=== PATIENT | male | born 1980 | race African-American/Black ===

== ENCOUNTER 2022-01-28 08:58 | Outpatient (REF) | payer OTHER, SELFPAY ==
--- NOTE | ~2022-01-28 | MR_ITS ---
EXAMINATION: MR ABDOMEN AND PELVIS WITH AND WITHOUT CONTRAST: MR ENTEROGRAPHY CLINICAL INFORMATION: Noninfected gastroenteritis and colitis, unspecified. COMPARISON: CT abdomen/pelvis from outside facility dated from 07/12/2019. TECHNIQUE: 1500 mL Volumen PO contrast prior to scanning. Then, multiple routine MRI sequences through the abdomen and pelvis were obtained on a high-field 1.5 Elissa MRI before and after the uneventful administration of 10 mL of Gadavist gadolinium-based IV contrast. FINDINGS: STOMACH: No significant wall thickening or hyperenhancement. SMALL BOWEL: Evaluation is somewhat limited due to motion and underdistention of several loops of the small bowel. However, accounting for these limitations, no significant wall thickening, hyperenhancement or associated fat stranding are noted. Normal appendix. COLON: Evaluation is limited secondary to motion and the presence of intrinsic T1 bright stool content. However, no significant wall thickening or pericolic inflammatory changes are noted. No bowel obstruction. LUNG BASES: Lung bases are clear. LIVER: There is no signal loss in the [id number] dual-echo images to suspect the presence of hepatic steatosis. The liver is normal in size, shape and attenuation. No focal liver lesion. GALL BLADDER AND BILIARY TREE: Normal gallbladder. No biliary ductal dilatation. SPLEEN: No focal lesion. Normal size. PANCREAS: Normal. ADRENAL GLANDS: No adrenal mass. KIDNEYS AND URETERS: Normal symmetric renal enhancement. No hydronephrosis or mass. LYMPHOVASCULAR STRUCTURES: No pathologically enlarged lymphadenopathy. The abdominal aorta is of normal diameter. PELVIC VISCERA: Unremarkable. OSSEOUS STRUCTURES: No acute or suspicious osseous abnormalities. MR/MR pelvis wo/w con IMPRESSION: No evidence of active inflammatory bowel changes.
--- NOTE | ~2022-01-28 | MR_ITS ---
EXAMINATION: MR ABDOMEN AND PELVIS WITH AND WITHOUT CONTRAST: MR ENTEROGRAPHY CLINICAL INFORMATION: Noninfected gastroenteritis and colitis, unspecified. COMPARISON: CT abdomen/pelvis from outside facility dated from 07/12/2019. TECHNIQUE: 1500 mL Volumen PO contrast prior to scanning. Then, multiple routine MRI sequences through the abdomen and pelvis were obtained on a high-field 1.5 Elissa MRI before and after the uneventful administration of 10 mL of Gadavist gadolinium-based IV contrast. FINDINGS: STOMACH: No significant wall thickening or hyperenhancement. SMALL BOWEL: Evaluation is somewhat limited due to motion and underdistention of several loops of the small bowel. However, accounting for these limitations, no significant wall thickening, hyperenhancement or associated fat stranding are noted. Normal appendix. COLON: Evaluation is limited secondary to motion and the presence of intrinsic T1 bright stool content. However, no significant wall thickening or pericolic inflammatory changes are noted. No bowel obstruction. LUNG BASES: Lung bases are clear. LIVER: There is no signal loss in the uaf-[id number] dual-echo images to suspect the presence of hepatic steatosis. The liver is normal in size, shape and attenuation. No focal liver lesion. GALL BLADDER AND BILIARY TREE: Normal gallbladder. No biliary ductal dilatation. SPLEEN: No focal lesion. Normal size. PANCREAS: Normal. ADRENAL GLANDS: No adrenal mass. KIDNEYS AND URETERS: Normal symmetric renal enhancement. No hydronephrosis or mass. LYMPHOVASCULAR STRUCTURES: No pathologically enlarged lymphadenopathy. The abdominal aorta is of normal diameter. PELVIC VISCERA: Unremarkable. OSSEOUS STRUCTURES: No acute or suspicious osseous abnormalities. MR/MR abdomen wo/w con IMPRESSION: No evidence of active inflammatory bowel changes.
== END 2022-01-28 08:59 | disposition home or self-care (01) ==
LOC: HO.MRI 08:58
PROVIDERS: Visit Provider Internal Medicine Gastroenterology
DX: K52.9 Noninfective gastroenteritis and colitis, unspecified (principal)
CPT/HCPCS: 72197; 74183; A9585

== ENCOUNTER 2022-02-05 13:17 | Outpatient (REF) | payer OTHER, SELFPAY ==
[2022-02-06 12:25] LABS: Influenza A PCR NEGATIVE (Negative); Influenza B PCR NEGATIVE (Negative); Resp Syncy Virus RNA Qual PCR NEGATIVE (Negative); SARS COV2 PCR INHOUSE NEGATIVE (Negative)
== END 2022-02-05 13:18 | disposition home or self-care (01) ==
LOC: HO.LAB 13:17
PROVIDERS: Visit Provider Hospitalist
DX: Z20.822 Contact with and (suspected) exposure to COVID-19 (principal); B97.89 Other viral agents as the cause of diseases classified elsewhere; J02.8 Acute pharyngitis due to other specified organisms
CPT/HCPCS: 0241U

== ENCOUNTER 2022-04-03 08:04 | Day surgery (SDC) | payer OTHER, SELFPAY ==
[2022-03-27 15:28] VITALS: BMI 29.4
[2022-03-27 15:41] VITALS: BMI 27.8
--- NOTE | 2022-04-02 13:09 | P.CONAN_ITS ---
Documented by User: Maliha Garza NP 04/02/22 13:09 HPI - Anesthesia Eval Consult details Narrative: 41yo M for Enteroscopy Balloon Dilation,small intestinal endoscopy,enteroscopy beyond second portion of duodenum including ileum PMFSH Active Problems Active Problems: All Active Problems (Updated 03/27/22 @ 15:40 by Cielo Rivera RN) Enteritis (Acute) Sore throat (viral) (Acute) Past Medical History Medical History (Updated 03/27/22 @ 15:40 by Cielo Rivera RN) Gastritis and duodenitis Surgical History Surgical History (Updated 03/27/22 @ 15:39 by Cielo Rivera RN) History of esophagogastroduodenoscopy (EGD) Hx of colonoscopy Social History Social History (Updated 03/27/22 @ 15:41 by Cielo Rivera RN) Are you a primary health care facility administrator to a significant other at home: No Do you presently have visiting nurse or other home services: No Patient Tobacco Use Status: Never used Tobacco Use of substances other than those prescribed or required for medical reasons: No Have you been hit, kicked, punched, or otherwise hurt by someone within the past year? If so, by whom?: No Are you DNR?: No Advance Directives: No Advance Directives Information Provided: Yes Advance Directives on File: No Recently lost weight without trying: No Nutrition Risks: No Nutritional Risk Poor oral hygiene: No Meds Allergies Allergy/AdvReac Type Severity Reaction Status Date / Time No Known Allergies Allergy Verified 03/27/22 15:39 Home Medications Medication Instructions Recorded Confirmed Last Taken Type linaclotide 290 mcg capsule 290 mcg PO DAILY 04/03/22 04/03/22 Unknown History (Linzess) Exam Exam Date and Time: April 02, 2022 1309 Height,Weight and Vital Signs: Height 5 ft 11 in Weight 90.718 kg Assessment and Plan Assessment Anesthesia Assessment: Chart Reviewed Documented by User: Vy Camacho MD 04/03/22 08:48 [facility] Past Medical History Medical History (Updated 03/27/22 @ 15:40 by Cielo Rivera, RN) Gastritis and duodenitis Family History Family history of problems with anesthesia: No Surgical History Surgical History (Updated 03/27/22 @ 15:39 by Cielo Rivera, RN) History of esophagogastroduodenoscopy (EGD) Hx of colonoscopy History of Problems with Anesthesia: No Social History Social History (Updated 03/27/22 @ 15:41 by Cielo Rivera, RN) Are you a primary health care facility administrator to a significant other at home: No Do you presently have visiting nurse or other home services: No Patient Tobacco Use Status: Never used Tobacco Use of substances other than those prescribed or required for medical reasons: No Have you been hit, kicked, punched, or otherwise hurt by someone within the past year? If so, by whom?: No Are you DNR?: No Advance Directives: No Advance Directives Information Provided: Yes Advance Directives on File: No Recently lost weight without trying: No Nutrition Risks: No Nutritional Risk Poor oral hygiene: No Meds Allergies Allergy/AdvReac Type Severity Reaction Status Date / Time No Known Allergies Allergy Verified 03/27/22 15:39 Home Medications Medication Instructions Recorded Confirmed Last Taken Type linaclotide 290 mcg capsule 290 mcg PO DAILY 04/03/22 04/03/22 Unknown History (Linzess) Exam Height,Weight and Vital Signs: Height 5 ft 11 in Weight 90.718 kg Vital Signs Temp Pulse Resp BP Pulse Ox O2 Del Method 04/03/22 08:14 97.0 F 79 16 119/72 97 Room Air Airway Mallampati Class: II TM Dist: >3cm Neck ROM: Full Loose/Missing/Broken Teeth: No Heart: RRR Lungs: CTAB Assessment and Plan Assessment Anesthesia Assessment: Anesthesia Plan Discussed Final Anesthetic Review Family History of Problems with Anesthesia: No History of Problems with Anesthesia: No NPO: Yes ASA Class: II Final Preanesthetic Review: No Changes in Pt Med Stat, Meds/Allgs Chart Reviewed, Consent Obtained/Reviewed and Anes Risks/Benef Reviewed Patient Risk: Low Procedure Risk: Low Assessment/Block/Sedation in SS: Assess/Block/Sedation- Anesthetic Plan Anesthetic Plan: GA Disposition: Standard PACU
[2022-04-03] VITALS (7 sets, daily range): BP systolic 116–126; BP diastolic 56–72; PULSE 79–88; RESP 16; TEMP 36.1–36.8; O2SAT 94–100
[2022-04-03] MEDS: Lactated Ringers 1,000 ML 100 ML IVCONT (08:40)
--- NOTE | 2022-04-03 09:30 | MHC.SHP ---
Pre-Procedural Eval Section A Date of Service: 04/03/22 Section B Chief Complaint: enteritis Details of Present Illness: abdominal pain, enteritis on capsule Relevant Family History (Specify if Yes): No Relevant Social History: None Present Medications: see Short Stay Collaborative assessment Medical History: No relevant PMH History of Previous Operations: No relevant previous surgery Allergies: Allergies Allergy/AdvReac Type Severity Reaction Status Date / Time No Known Allergies Allergy Verified 03/27/22 15:39 Review of Systems Sugical H&P ROS: Negative: Constitution, Cardiovascular, Respiratory, Neurological, Psychiatric, Hem-Onc, Allergic/Immunologic, Gastrointestinal, Genitourinary, Musculoskeletal, Integumentary, Endocrine and Eyes/Ears/Nose/Throat Exam Surgical H&P Exam: Normal: HEENT, Normal: Heart, Normal: Lungs, Normal: Extremities, Normal: Abdomen, Normal: Skin and Normal: Neurological Plan Diagnosis/Plan: Unchanged I have reviewed the history and physical and performed a pertinent physical examination on my patient. No changes have occurred unless specified. Balloon enteroscopy with biopsies
--- NOTE | 2022-04-03 11:08 | W.PM.OPN ---
Operative Note Operative Note Date of Service: 04/03/22 Narrative: Procedure Description: Push enteroscopy and balloon enteroscopy Indication: enteritis and abdominal pain Anesthesia: GA Push enteroscopy and single balloon enteroscopy Consent: Indications for the procedure and potential complications of bleeding, perforation, reaction to medications and missed diagnosis were discussed with the patient and informed consent was obtained. Instrument: Pediatric colonoscope and single balloon enteroscope Monitoring: Vital signs and clinical assessment, continuous EKG monitoring, Pulse oximetry, Carbon Dioxide monitoring and blood pressure monitoring were done throughout the procedure. Procedure: The patient was placed in the left lateral decubitis position and pre-procedure medications were administered and a bite block was placed. The endoscope was inserted into the mouth and advanced under direct vision to the third part of duodenum. A careful inspection was made as the upper endoscope was withdrawn including a retroflexed examination of the proximal stomach; Findings and interventions are described below. Findings: Larynx:normal Esophagus: GE junction at 42 cm, diaphragm hiatus at 42 cm, Random esophageal biopsies taken Stomach: Patchy gastric erythema. Biopsies were obtained. Grade 2 flap valve on retroflexed examination of the cardia. Duodenum: Normal bulb and descending duodenum, bx taken (it was hard to gewt around the turn of the second part of duodenum so used the pediatric colonoscope to navigate further ahead) Jejunum: patchy erythema, bx taken, reached the mid jejunum. This was marked with Savanna Ink. Intervention: Biopsies as noted above Impression/Findings: enteritis gastritis PLAN: await bx, sent for routine studies, amyloid, IgG4, mast cell and flow cytometry
== END 2022-04-03 12:30 | disposition home or self-care (01) ==
PROVIDERS: Visit Provider Internal Medicine Gastroenterology
PROC: (CPT 44361; principal; 2022-04-03 09:30)
DX: K52.9 Noninfective gastroenteritis and colitis, unspecified (principal); K29.50 Unspecified chronic gastritis without bleeding; K44.9 Diaphragmatic hernia without obstruction or gangrene; Z79.899 Other long term (current) drug therapy
CPT/HCPCS: 44361; 44799; 36415; 88184; 88185; 88300; 88305; 88313; 88341; 88342; J0131; J1100; J2250; J2405; J3010

== ENCOUNTER 2022-04-17 16:20 | Outpatient (REF) | payer OTHER, SELFPAY ==
[2022-04-18 12:08] LABS: H Pylori Breath Test Negative (Negative)
== END 2022-04-17 16:21 | disposition home or self-care (01) ==
LOC: HO.LNP 16:20
PROVIDERS: Visit Provider Internal Medicine Gastroenterology
DX: K52.9 Noninfective gastroenteritis and colitis, unspecified (principal)
CPT/HCPCS: 83013

== ENCOUNTER 2022-06-08 09:41 | Outpatient (REF) | payer OTHER, SELFPAY ==
[2022-06-08 13:07] LABS: Influenza A PCR NEGATIVE (Negative); Influenza B PCR NEGATIVE (Negative); Resp Syncy Virus RNA Qual PCR NEGATIVE (Negative); SARS COV2 PCR INHOUSE NEGATIVE (Negative)
== END 2022-06-08 09:42 | disposition home or self-care (01) ==
LOC: HO.LAB 09:41
PROVIDERS: Student in an Organized Health Care Education/Training Program; Visit Provider Family Medicine
DX: Z20.822 Contact with and (suspected) exposure to COVID-19 (principal); B34.9 Viral infection, unspecified
CPT/HCPCS: 0241U

== ENCOUNTER 2022-06-11 11:51 | Emergency (ER) | payer OTHER, SELFPAY ==
--- NOTE | 2022-06-11 12:09 | ED_ITS ---
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 Patient also describes having nighttime diarrhea approximately 5 episodes that are nonbloody and not associated with tenesmus. He has started ciprofloxacin for this and states that since beginning that treatment yesterday he is feeling much better and his fevers have also improved. Patient denies any history of thalassemia, sickle cell or sickle cell trait. <Connie Rodriguez MD - Last Filed: 06/11/22 16:45> Related Data Home medications: Home Medications Medication Instructions Recorded Confirmed linaclotide 290 mcg capsule 290 mcg PO DAILY 04/03/22 04/03/22 (Linzess) Previous Rx's Medication Instructions Recorded ketorolac 10 mg tablet 10 mg PO Q6H PRN pain 5 days #20 06/11/22 tabs <Michelle Jimenez NP - Last Filed: 06/11/22 12:38> Allergies/adverse reactions: Allergies Allergy/AdvReac Type Severity Reaction Status Date / Time No Known Allergies Allergy Verified 04/17/22 13:27 <Michelle Jimenez NP - Last Filed: 06/11/22 12:38> Review of Systems Review of Systems: Pertinent positives and negatives as stated in HPI <Connie Rodriguez MD - Last Filed: 06/11/22 16:45> PMFSH Past Medical History Source: nursing notes reviewed <Connie Rodriguez MD - Last Filed: 06/11/22 16:45> Medical History: Medical History Gastritis and duodenitis <Michelle Jimenez NP - Last Filed: 06/11/22 12:38> Surgical History: Surgical History History of esophagogastroduodenoscopy (EGD) Hx of colonoscopy <Michelle Jimenez NP - Last Filed: 06/11/22 12:38> Social History Social History: Social History Are you a primary daycare director to a significant other at home: No Do you presently have visiting nurse or other home services: No Patient Tobacco Use Status: Never used Tobacco Advance Directives: No <Michelle Jimenez NP - Last Filed: 06/11/22 12:38> Physical Exam ED Vital Signs: Vital Signs - 24 hr 06/11/22 12:10 06/11/22 14:08 06/11/22 16:31 Temperature 98.7 F 98.5 F 98.3 F Pulse Rate 95 83 90 Respiratory Rate 18 19 18 Blood Pressure 118/51 L 106/58 L 121/74 Pulse Oximetry 98 97 99 Oxygen Delivery Method Room Air Room Air Room Air BMI result Body Mass Index 27.8 <Michelle Jimenez NP - Last Filed: 06/11/22 12:38> Vital Signs - 24 hr 06/11/22 12:10 06/11/22 14:08 06/11/22 16:31 Temperature 98.7 F 98.5 F 98.3 F Pulse Rate 95 83 90 Respiratory Rate 18 19 18 Blood Pressure 118/51 L 106/58 L 121/74 Pulse Oximetry 98 97 99 Oxygen Delivery Method Room Air Room Air Room Air BMI result Body Mass Index 27.8 VITAL SIGNS: Reviewed. GENERAL: Well developed, well nourished, in no acute distress. HEAD: Normocephalic/atraumatic EYES: PERRLA, EOMI no pale conjunctiva EARS: Ext canals without abnormality OROPHARYNX: no oral lesions noted, posterior pharynx clear NECK: Supple, no adenopathy LUNGS: Normal breath sounds. No adventitious sounds or accessory muscle use. S pO2<98> CARDIOVASCULAR: Regular rate and rhythm without noted murmurs ABDOMEN: Soft, non-tender, non-distended with bowel sounds. MUSCULOSKELETAL: No tenderness, deformities, or effusions noted on gross inspection. EXTREMITIES: No cyanosis, clubbing or edema. SKIN: Inspection of the skin reveals no rashes NEUROLOGIC: Alert and oriented x 4. Strength and sensation to light touch were grossly intact x 4. <Connie Rodriguez MD - Last Filed: 06/11/22 16:45> Course Course Course Narrative: This is rapid medical exam. Deferred additional HPI, ROS, PE to primary provider. Traveled from [place] ([facility]) 06/01. 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 Did not take malaria prophylaxis. Since Wednesday headache, fever (up to 104), body aches, cough, congestion, abdominal pain, diarrhea. Wednesday tested negative for flu/covid/rsv. Started malaria medication Wednesday (took 3 doses which is complete course per patient), started ciprofloxacin yesterday. still having symptoms. Tomorrow has appt with PCP. D/w with attending Dr Rodriguez. Plan for labs, stool studies. Will discuss additional testing with patient when seen. <Michelle Jimenez NP - Last Filed: 06/11/22 12:38> Medications Administered Generic Name Dose Route Start Last Admin Trade Name Freq PRN Reason Stop Dose Admin Sodium Chloride 2,000 mls @ 999 mls/hr 06/11/22 14:45 06/11/22 15:20 Ns IV 06/11/22 16:45 999 mls/hr .Q2H1M MONTY Administration Discontinued Medications Generic Name Dose Route Start Last Admin Trade Name Freq PRN Reason Stop Dose Admin Ketorolac Tromethamine 15 mg 06/11/22 16:28 06/11/22 16:40 Ketorolac Tromethamine 30 Mg/Ml Vial IVPUSH 06/11/22 16:29 15 mg ONCE ONE Administration <Michelle Jimenez NP - Last Filed: 06/11/22 12:38> Medications Administered Generic Name Dose Route Start Last Admin Trade Name Freq PRN Reason Stop Dose Admin Sodium Chloride 2,000 mls @ 999 mls/hr 06/11/22 14:45 06/11/22 15:20 Ns IV 06/11/22 16:45 999 mls/hr .Q2H1M MONTY Administration Discontinued Medications Generic Name Dose Route Start Last Admin Trade Name Carlitos PRN Reason Stop Dose Admin Ketorolac Tromethamine 15 mg 06/11/22 16:28 06/11/22 16:40 Ketorolac Tromethamine 30 Mg/Ml Vial IVPUSH 06/11/22 16:29 15 mg ONCE ONE Administration <Connie Rodriguez MD - Last Filed: 06/11/22 16:45> Medical Decision Making Medical Decision Making MDM Narrative: 41-year-old male with suspicion for some form of tropical disease but typhoid and/or malaria very high on the list. 1448: I received a call from the lab which identifies ring structures within 1- 2% of the RBCs and will send to [facility] for confirmation. 1517: [facility] was notified about patient's diagnosis. I reviewed all investigations and my interpretation is that patient has malaria and possible typhoid and is unable to provide stool sample at this time but was instructed to collect 1 overnight so that his primary care provider would have it in the morning. However, unlikely to be positive given the fact that patient has already started himself on ciprofloxacin. She is otherwise discharged home after receiving 2 L of IV fluids as well as analgesics and will follow-up with his primary care provider tomorrow. <Connie Rodriguez MD - Last Filed: 06/11/22 16:45> Differential Diagnosis Differential Diagnoses: The differential diagnosis associated with the presentation includes <Connie Rodriguez MD - Last Filed: 06/11/22 16:45> Please see the discussion above <Connie Rodriguez MD - Last Filed: 06/11/22 16:45> Consult Healthcare Provider Management of the patient was discussed with: Sand Caster Apprentice <Connie Rodriguez MD - Last Filed: 06/11/22 16:45> Dr Monet agrees with current treatment and was informed of diagnosis. She knows that dengue and typhoid are pending. <Connie Rodriguez MD - Last Filed: 06/11/22 16:45> Lab Data Result Diagrams: 06/11/22 12:53 01/26/23 12:53 <Michelle Jimenez, WEB SITE ADMIN - Last Filed: 06/11/22 12:38> Labs: Lab Results 06/11/22 06/11/22 06/11/22 Range/Units 12:32 12:53 12:53 WBC 5.2 (4.8-10.8) X10*3/uL RBC 5.10 (4.60-5.80) X10*6/uL Hgb 13.3 L (14.0-18.0) g/dl Hct 39.5 L (42.0-52.0) % MCV 77.5 L (80.0-98.0) fL MCH 26.1 L (27.0-33.0) pg MCHC 33.7 (31.0-36.0) g/dl RDW 12.5 (11.0-16.0) % Plt Count 68 L (160-400) X10*3/uL MPV 10.6 (9.4-12.4) fL Immature Gran % (Auto) Cancelled Neut % (Auto) Cancelled Lymph % (Auto) Cancelled Richardson % (Auto) Cancelled Eos % (Auto) Cancelled Baso % (Auto) Cancelled Lymph # (Auto) Cancelled Richardson # (Auto) Cancelled Eos # (Auto) Cancelled Baso # (Auto) Cancelled Abs Immat Gran (auto) Cancelled Absolute Neuts (auto) Cancelled Absolute Nucleated RBC 0.000 (0.0-0.012) X10*3/uL Nucleated RBC % (auto) 0.0 (0.0-0.2) /100WBC Neutrophils % (Manual) 32 L (45-73) % Band Neutrophils % 2 L (3-5) % Lymphocytes % (Manual) 50 H (20-40) % Atypical Lymphs % (Man) 6 (0-6) % Monocytes % (Manual) 10 (2-11) % Abs Neuts (Manual) 1.8 L (2.0-8.3) X10*3/uL Lymphocytes # (Manual) 2.6 (1.2-4.9) X10*3/uL Atyp Lymphs # (Manual) 0.3 x10*3/uL Monocytes # (Manual) 0.5 (0.1-1.2) X10*3/uL Platelet Estimate DECREASED (NORMAL) Plt Morphology Comment NORMAL RBC Morphology NOTED Polychromasia 1+ (0-2) /OIF Microcytosis 1+ (5-14) /OIF Crystal Cells 1+ (0-2) /OIF Smear Path Review Absolute Retic (0.026-0.095) X10*6/uL Percent Retic (0.5-1.8) % Immature Retic Fraction (2.3-13.4) % Retic Hgb Equivalent (30.0-35.0) pg PT (10.0-13.1) SEC INR (0.9-1.1) Sodium 135 (135-145) mmol/L Potassium 3.5 (3.3-5.1) mmol/L Chloride 103 (96-108) mmol/L Carbon Dioxide 23 (22-29) mmol/L Anion Gap 13 (12-20) BUN 9 (9-16) mg/dL Creatinine 1.18 (0.5-1.4) mg/dL Estim Creat Clear Calc 95.8 Estimated GFR > 60 Random Glucose 125 H (60-115) mg/dL Calcium 8.9 (8.4-10.2) mg/dL Total Bilirubin 1.1 H (0.0-1.0) mg/dL Direct Bilirubin 0.3 (0.0-0.5) mg/dL AST 36 (5-37) U/L ALT 38 (0-40) U/L Alkaline Phosphatase 79 (39-117) U/L Total Protein 6.8 (6.5-8.0) g/dL Albumin 3.6 (3.5-5.0) g/dL Influenza Type A (PCR) NEGATIVE (Negative) Influenza Type B (PCR) NEGATIVE (Negative) RSV RNA Qual (PCR) NEGATIVE (Negative) SARS-CoV-2 RNA (RT-PCR) NEGATIVE (Negative) 06/11/22 06/11/22 Range/Units 12:53 12:53 WBC (4.8-10.8) X10*3/uL RBC (4.60-5.80) X10*6/uL Hgb (14.0-18.0) g/dl Hct (42.0-52.0) % MCV (80.0-98.0) fL MCH (27.0-33.0) pg MCHC (31.0-36.0) g/dl RDW (11.0-16.0) % Plt Count (160-400) X10*3/uL MPV (9.4-12.4) fL Immature Gran % (Auto) Neut % (Auto) Lymph % (Auto) Richardson % (Auto) Eos % (Auto) Baso % (Auto) Lymph # (Auto) Richardson # (Auto) Eos # (Auto) Baso # (Auto) Abs Immat Gran (auto) Absolute Neuts (auto) Absolute Nucleated RBC (0.0-0.012) X10*3/uL Nucleated RBC % (auto) (0.0-0.2) /100WBC Neutrophils % (Manual) (45-73) % Band Neutrophils % (3-5) % Lymphocytes % (Manual) (20-40) % Atypical Lymphs % (Man) (0-6) % Monocytes % (Manual) (2-11) % Abs Neuts (Manual) (2.0-8.3) X10*3/uL Lymphocytes # (Manual) (1.2-4.9) X10*3/uL Atyp Lymphs # (Manual) x10*3/uL Monocytes # (Manual) (0.1-1.2) X10*3/uL Platelet Estimate (NORMAL) Plt Morphology Comment RBC Morphology Polychromasia /OIF Microcytosis /OIF Crystal Cells /OIF Smear Path Review Absolute Retic 0.047 (0.026-0.095) X10*6/uL Percent Retic 0.9 (0.5-1.8) % Immature Retic Fraction 12.6 (2.3-13.4) % Retic Hgb Equivalent 26.5 L (30.0-35.0) pg PT 13.2 H (10.0-13.1) SEC INR 1.1 (0.9-1.1) Sodium (135-145) mmol/L Potassium (3.3-5.1) mmol/L Chloride (96-108) mmol/L Carbon Dioxide (22-29) mmol/L Anion Gap (12-20) BUN (9-16) mg/dL Creatinine (0.5-1.4) mg/dL Estim Creat Clear Calc Estimated GFR Random Glucose (60-115) mg/dL Calcium (8.4-10.2) mg/dL Total Bilirubin (0.0-1.0) mg/dL Direct Bilirubin (0.0-0.5) mg/dL AST (5-37) U/L ALT (0-40) U/L Alkaline Phosphatase (39-117) U/L Total Protein (6.5-8.0) g/dL Albumin (3.5-5.0) g/dL Influenza Type A (PCR) (Negative) Influenza Type B (PCR) (Negative) RSV RNA Qual (PCR) (Negative) SARS-CoV-2 RNA (RT-PCR) (Negative) <Michelle Jimenez, WEB SITE ADMIN - Last Filed: 06/11/22 12:38> Lab Results 06/11/22 06/11/22 06/11/22 Range/Units 12:32 12:53 12:53 WBC 5.2 (4.8-10.8) X10*3/uL RBC 5.10 (4.60-5.80) X10*6/uL Hgb 13.3 L (14.0-18.0) g/dl Hct 39.5 L (42.0-52.0) % MCV 77.5 L (80.0-98.0) fL MCH 26.1 L (27.0-33.0) pg MCHC 33.7 (31.0-36.0) g/dl RDW 12.5 (11.0-16.0) % Plt Count 68 L (160-400) X10*3/uL MPV 10.6 (9.4-12.4) fL Immature Gran % (Auto) Cancelled Neut % (Auto) Cancelled Lymph % (Auto) Cancelled Richardson % (Auto) Cancelled Eos % (Auto) Cancelled Baso % (Auto) Cancelled Lymph # (Auto) Cancelled Richardson # (Auto) Cancelled Eos # (Auto) Cancelled Baso # (Auto) Cancelled Abs Immat Gran (auto) Cancelled Absolute Neuts (auto) Cancelled Absolute Nucleated RBC 0.000 (0.0-0.012) X10*3/uL Nucleated RBC % (auto) 0.0 (0.0-0.2) /100WBC Neutrophils % (Manual) 32 L (45-73) % Band Neutrophils % 2 L (3-5) % Lymphocytes % (Manual) 50 H (20-40) % Atypical Lymphs % (Man) 6 (0-6) % Monocytes % (Manual) 10 (2-11) % Abs Neuts (Manual) 1.8 L (2.0-8.3) X10*3/uL Lymphocytes # (Manual) 2.6 (1.2-4.9) X10*3/uL Atyp Lymphs # (Manual) 0.3 x10*3/uL Monocytes # (Manual) 0.5 (0.1-1.2) X10*3/uL Platelet Estimate DECREASED (NORMAL) Plt Morphology Comment NORMAL RBC Morphology NOTED Polychromasia 1+ (0-2) /OIF Microcytosis 1+ (5-14) /OIF Crystal Cells 1+ (0-2) /OIF Smear Path Review Absolute Retic (0.026-0.095) X10*6/uL Percent Retic (0.5-1.8) % Immature Retic Fraction (2.3-13.4) % Retic Hgb Equivalent (30.0-35.0) pg PT (10.0-13.1) SEC INR (0.9-1.1) Sodium 135 (135-145) mmol/L Potassium 3.5 (3.3-5.1) mmol/L Chloride 103 (96-108) mmol/L Carbon Dioxide 23 (22-29) mmol/L Anion Gap 13 (12-20) BUN 9 (9-16) mg/dL Creatinine 1.18 (0.5-1.4) mg/dL Estim Creat Clear Calc 95.8 Estimated GFR > 60 Random Glucose 125 H (60-115) mg/dL Calcium 8.9 (8.4-10.2) mg/dL Total Bilirubin 1.1 H (0.0-1.0) mg/dL Direct Bilirubin 0.3 (0.0-0.5) mg/dL AST 36 (5-37) U/L ALT 38 (0-40) U/L Alkaline Phosphatase 79 (39-117) U/L Total Protein 6.8 (6.5-8.0) g/dL Albumin 3.6 (3.5-5.0) g/dL Influenza Type A (PCR) NEGATIVE (Negative) Influenza Type B (PCR) NEGATIVE (Negative) RSV RNA Qual (PCR) NEGATIVE (Negative) SARS-CoV-2 RNA (RT-PCR) NEGATIVE (Negative) 06/11/22 06/11/22 Range/Units 12:53 12:53 WBC (4.8-10.8) X10*3/uL RBC (4.60-5.80) X10*6/uL Hgb (14.0-18.0) g/dl Hct (42.0-52.0) % MCV (80.0-98.0) fL MCH (27.0-33.0) pg MCHC (31.0-36.0) g/dl RDW (11.0-16.0) % Plt Count (160-400) X10*3/uL MPV (9.4-12.4) fL Immature Gran % (Auto) Neut % (Auto) Lymph % (Auto) Richardson % (Auto) Eos % (Auto) Baso % (Auto) Lymph # (Auto) Richardson # (Auto) Eos # (Auto) Baso # (Auto) Abs Immat Gran (auto) Absolute Neuts (auto) Absolute Nucleated RBC (0.0-0.012) X10*3/uL Nucleated RBC % (auto) (0.0-0.2) /100WBC Neutrophils % (Manual) (45-73) % Band Neutrophils % (3-5) % Lymphocytes % (Manual) (20-40) % Atypical Lymphs % (Man) (0-6) % Monocytes % (Manual) (2-11) % Abs Neuts (Manual) (2.0-8.3) X10*3/uL Lymphocytes # (Manual) (1.2-4.9) X10*3/uL Atyp Lymphs # (Manual) x10*3/uL Monocytes # (Manual) (0.1-1.2) X10*3/uL Platelet Estimate (NORMAL) Plt Morphology Comment RBC Morphology Polychromasia /OIF Microcytosis /OIF Crystal Cells /OIF Smear Path Review Absolute Retic 0.047 (0.026-0.095) X10*6/uL Percent Retic 0.9 (0.5-1.8) % Immature Retic Fraction 12.6 (2.3-13.4) % Retic Hgb Equivalent 26.5 L (30.0-35.0) pg PT 13.2 H (10.0-13.1) SEC INR 1.1 (0.9-1.1) Sodium (135-145) mmol/L Potassium (3.3-5.1) mmol/L Chloride (96-108) mmol/L Carbon Dioxide (22-29) mmol/L Anion Gap (12-20) BUN (9-16) mg/dL Creatinine (0.5-1.4) mg/dL Estim Creat Clear Calc Estimated GFR Random Glucose (60-115) mg/dL Calcium (8.4-10.2) mg/dL Total Bilirubin (0.0-1.0) mg/dL Direct Bilirubin (0.0-0.5) mg/dL AST (5-37) U/L ALT (0-40) U/L Alkaline Phosphatase (39-117) U/L Total Protein (6.5-8.0) g/dL Albumin (3.5-5.0) g/dL Influenza Type A (PCR) (Negative) Influenza Type B (PCR) (Negative) RSV RNA Qual (PCR) (Negative) SARS-CoV-2 RNA (RT-PCR) (Negative) <Connie Rodriguez MD - Last Filed: 06/11/22 16:45> Discharge Plan Discharge Clinical Impression: Malaria <Michelle Jimenez NP - Last Filed: 06/11/22 12:38> Patient Disposition: Home, Self-Care <Michelle Jimenez NP - Last Filed: 06/11/22 12:38> Instructions: Malaria (ED) <Michelle Jimenez NP - Last Filed: 06/11/22 12:38> Additional Instructions: 1. Keep your appointment with your primary care provider tomorrow, please obtain a stool sample so that individual can send that off for further testing for typhoid although this may not be positive given the fact that you are taking ciprofloxacin and I recommend that you complete the course of treatment. Do not hesitate to return to the emergency room for any worsening of symptoms. <Michelle Jimenez NP - Last Filed: 06/11/22 12:38> Prescriptions: New ketorolac 10 mg tablet 10 mg PO Q6H PRN (Reason: pain) 5 Days Qty: 20 0RF Rx Instructions: Patient received Toradol in the emergency room. No Action Linzess 290 mcg capsule 290 mcg PO DAILY <Michelle Jimenez NP - Last Filed: 06/11/22 12:38>
[2022-06-11 12:10] VITALS: BP 118/51; PULSE 95; RESP 18; TEMP 37.1; O2SAT 98; BMI 27.8
[2022-06-11 13:03] LABS: Hemoglobin 13.3 g/dl (14.0-18.0); Mean Corpuscular Hemoglobin 26.1 pg (27.0-33.0); PLT CLUMP 1; Red Cell Distribution Width 12.5 % (11.0-16.0)
[2022-06-11 13:05] LABS: Hematocrit 39.5 % (42.0-52.0); Mean Corpuscular HGB Conc 33.7 g/dl (31.0-36.0); Mean Corpuscular Volume 77.5 fL (80.0-98.0); Mean Platelet Volume 10.6 fL (9.4-12.4); White Blood Count 5.2 X10*3/uL (4.8-10.8)
[2022-06-11 13:06] LABS: Immature Retic Fraction 12.6 % (2.3-13.4); Retic HGB Equivalent 26.5 pg (30.0-35.0); Reticulocyte Percent 0.9 % (0.5-1.8); Reticulocytes Absolute 0.047 X10*6/uL (0.026-0.095)
[2022-06-11 13:08] LABS: INTERNATIONAL NORM RATIO 1.1 (0.9-1.1); Prothrombin Time 13.2 SEC (10.0-13.1)
[2022-06-11 13:14] LABS: Platelet Count 68 X10*3/uL (160-400)
[2022-06-11 13:17] LABS: Alanine Aminotransferase 38 U/L (0-40); Albumin Level 3.6 g/dL (3.5-5.0); Alkaline Phosphatase 79 U/L (39-117); Anion Gap 13 (12-20); Aspartate Amino Transferase 36 U/L (5-37); Bilirubin Direct 0.3 mg/dL (0.0-0.5); Bilirubin Total 1.1 mg/dL (0.0-1.0); Blood Urea Nitrogen 9 mg/dL (9-16); Calcium 8.9 mg/dL (8.4-10.2); Carbon Dioxide 23 mmol/L (22-29); Chloride 103 mmol/L (96-108); Creatinine Clr Calc Pharmacy 95.8; Estimated Glomerular Filt Rate > 60; Glucose Random 125 mg/dL (60-115); Potassium 3.5 mmol/L (3.3-5.1); Sodium 135 mmol/L (135-145); Total Protein 6.8 g/dL (6.5-8.0)
[2022-06-11 13:21] LABS: Influenza A PCR NEGATIVE (Negative); Influenza B PCR NEGATIVE (Negative); Resp Syncy Virus RNA Qual PCR NEGATIVE (Negative); SARS COV2 PCR INHOUSE NEGATIVE (Negative)
[2022-06-11 13:52] LABS: Atypical Lymph Absolute Manual 0.3 x10*3/uL; Atypical Lymphs Percent Manual 6 % (0-6); Band Neutrophils Percent 2 % (3-5); Burr Cells 1+ (0-2) /OIF; Lymphocytes Absolute Manual 2.6 X10*3/uL (1.2-4.9); Lymphocytes Percent Manual 50 % (20-40); Microcytosis 1+ (5-14) /OIF; Monocytes Absolute Manual 0.5 X10*3/uL (0.1-1.2); Monocytes Percent Manual 10 % (2-11); Neutrophils Absolute Manual 1.8 X10*3/uL (2.0-8.3); Neutrophils Percent Manual 32 % (45-73); Platelet Estimate DECREASED (NORMAL); Platelet Morphology Comment NORMAL; Polychromasia 1+ (0-2) /OIF; RBC Morphology NOTED
[2022-06-11 14:08] VITALS: BP 106/58; PULSE 83; RESP 19; TEMP 36.9; O2SAT 97
--- NOTE | 2022-06-11 15:07 | MHC.EDTECH ---
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
[2022-06-11] MEDS: 0.9 % Sodium Chloride 2,000 ML 999 ML IV (15:20)
--- NOTE | 2022-06-11 15:23 | PC.NURSE ---
patient alert, oriented x4. VSS, afebrile. able to make needs known. iv in place, fluids infusing per MAR. frequent rounding to maintain safety. call cheema within reach
[2022-06-11 16:31] VITALS: BP 121/74; PULSE 90; RESP 18; TEMP 36.8; O2SAT 99
[2022-06-11] MEDS: Ketorolac Tromethamine 30 MG/ML VIAL 15 MG IVPUSH (16:40)
== END 2022-06-11 17:35 | disposition home or self-care (01) ==
PROVIDERS: Nurse Practitioner Family; Emergency Provider Student in an Organized Health Care Education/Training Program
DX: B54 Unspecified malaria (principal); Z20.822 Contact with and (suspected) exposure to COVID-19; Z20.828 Contact with and (suspected) exposure to other viral communicable diseases; Z79.899 Other long term (current) drug therapy
CPT/HCPCS: 0241U; 36415; 80048; 80076; 85007; 85027; 85045; 85610; 96361; 96374; 99284; J1885

== ENCOUNTER 2022-09-09 12:22 | Outpatient (REF) | payer OTHER, SELFPAY ==
[2022-09-09 14:36] LABS: TSH reflex Free T4 2.99 uIU/mL (0.32-4.0)
== END 2022-09-09 12:23 | disposition home or self-care (01) ==
LOC: HO.WFDLDS 12:22
PROVIDERS: Visit Provider Hospitalist
DX: Z13.29 Encounter for screening for other suspected endocrine disorder (principal)
CPT/HCPCS: 36415; 84443

== ENCOUNTER 2022-10-03 10:22 | Outpatient (REF) | payer OTHER, SELFPAY ==
[2022-10-03 10:43] LABS: MANUAL DIFF FLAG NO
[2022-10-03 10:52] LABS: Basophils Percent Auto 0.8 % (0-2); Eosinophils Absolute Auto 0.1 X10*3/uL (0.0-0.4); Eosinophils Percent Auto 1.2 % (0-4); Hemoglobin 15.9 g/dl (14.0-18.0); Imm Gran Abs Auto 0.01 X10*3/uL (0.00-0.03); Imm Gran Pct Auto 0.2 % (0.0-0.4); Lymphocytes Absolute Auto 2.7 X10*3/uL (1.2-4.9); Lymphocytes Percent Auto 54.7 % (20-40); Mean Corpuscular HGB Conc 33.1 g/dl (31.0-36.0); Mean Corpuscular Hemoglobin 26.5 pg (27.0-33.0); Mean Corpuscular Volume 80.1 fL (80.0-98.0); Mean Platelet Volume 10.4 fL (9.4-12.4); Monocytes Absolute Auto 0.4 X10*3/uL (0.1-1.2); Neutrophils Absolute Auto 1.8 x10*3/uL (2.0-8.3); Neutrophils Percent Auto 36.1 % (45-73); Platelet Count 222 X10*3/uL (160-400); Red Blood Count 5.99 X10*6/uL (4.60-5.80); Red Cell Distribution Width 12.3 % (11.0-16.0)
[2022-10-03 11:27] LABS: Alanine Aminotransferase 36 U/L (0-40); Albumin Level 4.7 g/dL (3.5-5.0); Alkaline Phosphatase 59 U/L (39-117); Anion Gap 10 (12-20); Aspartate Amino Transferase 46 U/L (5-37); Bilirubin Total 0.4 mg/dL (0.0-1.0); Blood Urea Nitrogen 16 mg/dL (9-16); C Reactive Protein < 0.10 mg/dL (< or = 0.50); Calcium 10.6 mg/dL (8.4-10.2); Carbon Dioxide 29 mmol/L (22-29); Chloride 104 mmol/L (96-108); Estimated Glomerular Filt Rate 59; Glucose Random 93 mg/dL (60-115); Iron 62 mcg/dL (45-160); Percent Iron Saturation 18 % (15-50); Potassium 4.5 mmol/L (3.3-5.1); Sodium 138 mmol/L (135-145); Total Iron Binding Capacity 344 mcg/dL (228-428); Total Protein 7.7 g/dL (6.5-8.0); Unsaturated Iron Binding 282 ug/dL
[2022-10-03 11:32] LABS: Erythrocyte Sedimentation Rate 2 MM/HR (0-15)
[2022-10-03 11:56] LABS: Ferritin 165 ng/mL (20-250); Folate 16.1 ng/mL (> or = 4.0); Vitamin B12 1108 pg/mL (200-900); Vitamin D 25-OH Total 40.1 ng/mL (>30)
[2022-10-06 15:13] LABS: Gliadin Deamidated IgA Ab <1.0 U/mL; Gliadin Deamidated IgG Ab <1.0 U/mL
[2022-10-07 09:19] LABS: Immunoglobulin E 13 kU/L (<OR=114)
[2022-10-07 19:54] LABS: Transglutaminase Ab IgG <1.0 U/mL; Transglutaminase IgA <1.0 U/mL
[2022-10-08 04:09] LABS: Zinc 76 mcg/dL (60-130)
[2022-10-08 17:23] LABS: Vitamin C 0.5 mg/dL (0.2-2.1)
[2022-10-08 23:24] LABS: Alpha-Tocopherol 18.4 mg/L (5.7-19.9); Beta-Gamma Tocopherol <1.0 mg/L (<=4.3)
[2022-10-09 13:43] LABS: Vitamin B1 10 nmol/L (8-30)
[2022-10-09 17:34] LABS: Vitamin A 65 mcg/dL (38-98)
[2022-10-09 19:23] LABS: Vitamin K1 111 pg/mL (130-1500)
[2022-10-10 13:09] LABS: Vitamin B6 74.1 ng/mL (2.1-21.7)
[2022-10-13 13:05] LABS: Nicotinamide 34 ng/mL; Vit B3 - Nicotinic Acid <20 ng/mL; Vitamin B5 (Pantothenic Acid) 67 ng/mL (<275)
== END 2022-10-03 10:23 | disposition home or self-care (01) ==
LOC: HO.LAB 10:22
PROVIDERS: Visit Provider Internal Medicine Gastroenterology
DX: K52.9 Noninfective gastroenteritis and colitis, unspecified (principal); R10.33 Periumbilical pain; G89.29 Other chronic pain; K75.81 Nonalcoholic steatohepatitis (NASH)
CPT/HCPCS: 36415; 80053; 82180; 82306; 82607; 82728; 82746; 82785; 83540; 84207; 84425; 84446; 84590; 84591; 84597; 84630; 85025; 85652; 86140; 86258; 86364

== ENCOUNTER 2022-12-30 10:18 | Outpatient (REF) | payer OTHER, SELFPAY ==
[2023-01-06 16:18] LABS: Lactoferrin, Fecal, Quant. <6.25 mcg/mL (<7.25)
== END 2022-12-30 10:19 | disposition home or self-care (01) ==
LOC: HO.WFDLDS 10:18
PROVIDERS: Visit Provider Internal Medicine Gastroenterology
DX: K52.9 Noninfective gastroenteritis and colitis, unspecified (principal)
CPT/HCPCS: 83631

== ENCOUNTER 2023-01-01 07:22 | Outpatient (REF) | payer OTHER, SELFPAY ==
--- NOTE | ~2023-01-01 | US_ITS ---
EXAMINATION: US ABDOMEN LIMITED CLINICAL INFORMATION: Right upper quadrant pain. COMPARISON: MRI of the abdomen January [address] of the abdomen and pelvis June 2019 and ultrasound of the abdomen April 2016 TECHNIQUE: Real-time imaging of the right upper quadrant abdominal viscera. FINDINGS: PANCREAS: Normal. LIVER: Normal. The liver is normal in size. The liver contour is normal. Parenchymal echogenicity is normal. No focal hepatic lesion. There is no intrahepatic biliary duct dilatation seen. GALLBLADDER: Gallbladder is normal in size. Small 2 mm echogenic density adjacent to the gallbladder wall that does not move or shadow questionable for small gallbladder wall polyp no definite stone seen. Normal gallbladder wall. No pericholecystic fluid. COMMON BILE DUCT: Normal in caliber measuring 0.3 cm in diameter. RIGHT KIDNEY: Normal. No hydronephrosis. No renal calculi or focal parenchymal lesions. The kidney measures 11 cm in maximum dimension. FREE FLUID: None. US/US abdomen limited IMPRESSION: Question small 2 mm gallbladder wall polyp. Otherwise unremarkable exam.
== END 2023-01-01 07:23 | disposition home or self-care (01) ==
LOC: HO.US 07:22
PROVIDERS: Visit Provider Internal Medicine Gastroenterology
DX: R10.11 Right upper quadrant pain (principal); K52.9 Noninfective gastroenteritis and colitis, unspecified
CPT/HCPCS: 76705

== ENCOUNTER 2023-02-01 15:13 | Outpatient (AMB) | payer OTHER, SELFPAY ==
--- NOTE | 2023-02-01 15:14 | MHC.OFFVIS ---
Intake Intake Visit Reasons: Follow Up US Intake Note: Norris presents as a telehealth today to go over results to his US. CC: States that he is feeling okay and no concerns since his US. 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 with controllable sx but then had a major flare so put on trial of budesonide lactoferrin was neg CBC nml, CRP-- neg celiac panel--neg INTERIM: He has been taking budesonide for 1 month he doesn;t feel that it was that helpful pain is intermittent right now pain free he has constipation right now EXAM: Relaxed, good color A/P: 1/ Intermittent abdominal pain, possible enteritis, ?subacute crohns, other enteropathy 2/ Renal insuff and borderline Ca, ?hyperparathyroidism PLAN: 1/ CTe 2/ recheck labs, ANCA, UA 3/ cont with budesonide 4/ check Ca, PO4, and PTH, 5/ ?trial of entyvio [facility] Medical History Gastritis and duodenitis Surgical History History of esophagogastroduodenoscopy (EGD) Hx of colonoscopy Social History Are you a primary housekeeper caregiver to a significant other at home: No Do you presently have visiting nurse or other home services: No Patient Tobacco Use Status: Never used Tobacco Assessment & Plan Assessment & Plan (1) RUQ pain: Code(s): R10.11 - Right upper quadrant pain (2) Enteritis: Code(s): K52.9 - Noninfective gastroenteritis and colitis, unspecified Orders: Orders Complete Blood Count Auto Diff Today K52.9 - Noninfective gastroenteritis and colitis, unspecified, R10.11 - Right upper quadrant pain Comprehensive Met. Panel Today K52.9 - Noninfective gastroenteritis and colitis, unspecified, K75.81 - Nonalcoholic steatohepatitis (CORRALES), R10.11 - Right upper quadrant pain Immunoglobulins,IgG IgA IgM Today K52.9 - Noninfective gastroenteritis and colitis, unspecified, R10.11 - Right upper quadrant pain Calcium, Ionized Today E83.52 - Hypercalcemia, K52.9 - Noninfective gastroenteritis and colitis, unspecified, R10.11 - Right upper quadrant pain PTHI Today K52.9 - Noninfective gastroenteritis and colitis, unspecified, R10.11 - Right upper quadrant pain C Reactive Protein Today K52.9 - Noninfective gastroenteritis and colitis, unspecified, R10.11 - Right upper quadrant pain CT enterography Today K52.9 - Noninfective gastroenteritis and colitis, unspecified, R10.11 - Right upper quadrant pain, R10.33 - Periumbilical pain ANCA Vasculitides Today K52.9 - Noninfective gastroenteritis and colitis, unspecified, R10.11 - Right upper quadrant pain Phosphorus Today K52.9 - Noninfective gastroenteritis and colitis, unspecified, R10.11 - Right upper quadrant pain UA CC w/rflx Micro + Cult Today K52.9 - Noninfective gastroenteritis and colitis, unspecified, R10.11 - Right upper quadrant pain, R30.0 - Dysuria Rast Allergen Today K52.9 - Noninfective gastroenteritis and colitis, unspecified, R10.11 - Right upper quadrant pain Medications: Changed From budesonide ER open capsules and mix with apple sauce and take 6 mg PO DAILY To budesonide ER open capsules and mix with apple sauce and take 9 mg (3 x 3 mg) PO DAILY 30 days 90 ea 1RF Telehealth Telehealth Location of provider rendering services: practice address Location of patient: address on file Patient Identification confirmed using: Name, : Yes Telehealth method: video Patient verbally consented to treatment: Yes Patient verbally consented to billing insurance company: Yes Patient informed of any privacy concerns related to visit: Yes Minutes spent on Phone/Video with Pt.: 26 Coding Level of Care Code Tele [facility] Pt Level 4 (53977) Diagnoses RUQ pain R10.11 Enteritis K52.9
== END 2023-02-01 16:14 | disposition home or self-care (01) ==
LOC: HO.HGI 15:13
PROVIDERS: Visit Provider Internal Medicine Gastroenterology
DX: K52.9 Noninfective gastroenteritis and colitis, unspecified (principal)
CPT/HCPCS: 99214

== ENCOUNTER → 2023-02-01 15:13 | Outpatient (BNVA) | payer OTHER, SELFPAY | PROVIDERS: Visit Provider Internal Medicine Gastroenterology ==

== ENCOUNTER 2023-02-02 12:47 | Outpatient (REF) | payer OTHER, SELFPAY ==
[2023-02-02 14:52] LABS: Appearance Urine Clear; Color Urine Yellow; Glucose Urine UA Negative (Negative); Leukocyte Esterase Urine Negative (Negative); Nitrite Urine Negative (Negative); PH 5.5 (5.0-9.0); Specific Gravity - Urine 1.025 (1.005-1.025); Urine Blood Negative (Negative); Urine Ketones Trace mg/dL (Negative); Urine Protein Negative (Neg-Trace)
[2023-02-02 16:05] LABS: Alanine Aminotransferase 19 U/L (0-40); Albumin Level 4.9 g/dL (3.5-5.0); Alkaline Phosphatase 64 U/L (39-117); Anion Gap 12 (12-20); Aspartate Amino Transferase 28 U/L (5-37); Bilirubin Total 0.4 mg/dL (0.0-1.0); Blood Urea Nitrogen 11 mg/dL (9-16); C Reactive Protein < 0.04 mg/dL (< or = 0.50); Calcium 10.6 mg/dL (8.4-10.2); Carbon Dioxide 26 mmol/L (22-29); Chloride 105 mmol/L (96-108); Estimated Glomerular Filt Rate 59; Glucose Random 88 mg/dL (60-115); Phosphorus 3.1 mg/dL (2.7-4.5); Potassium 4.2 mmol/L (3.3-5.1); Sodium 139 mmol/L (135-145); Total Protein 8.1 g/dL (6.5-8.0)
[2023-02-03 13:23] LABS: Myeloperoxidase Antibody <1.0 AI; Proteinase 3 PR3 Antibodies <1.0 AI
[2023-02-03 15:38] LABS: Calcium, Ionized 5.3 mg/dL (4.7-5.5)
[2023-02-03 17:58] LABS: Calcium (PTHI) 10.5 mg/dL (8.6-10.3); PTHI 30 pg/mL (16-77)
[2023-02-03 21:53] LABS: IgA 125 mg/dL (47-310); IgG 1413 mg/dL (600-1640); IgM 51 mg/dL (50-300)
== END 2023-02-02 12:48 | disposition home or self-care (01) ==
LOC: HO.WFDLDS 12:47
PROVIDERS: Visit Provider Internal Medicine Gastroenterology
DX: R10.11 Right upper quadrant pain (principal); K52.9 Noninfective gastroenteritis and colitis, unspecified; K75.81 Nonalcoholic steatohepatitis (NASH); E83.52 Hypercalcemia; R30.0 Dysuria; Z91.09 Other allergy status, other than to drugs and biological substances
CPT/HCPCS: 36415; 80053; 81003; 82330; 82784; 83970; 84100; 86003; 86021; 86140

== ENCOUNTER 2023-02-05 08:18 | Outpatient (REF) | payer OTHER, SELFPAY ==
[2023-02-05 11:13] LABS: MANUAL DIFF FLAG NO
[2023-02-05 11:40] LABS: Basophils Absolute Auto 0.1 X10*3/uL (0.0-0.2); Eosinophils Absolute Auto 0.1 X10*3/uL (0.0-0.4); Eosinophils Percent Auto 1.2 % (0-4); Hematocrit 49.5 % (42.0-52.0); Hemoglobin 15.9 g/dl (14.0-18.0); Imm Gran Abs Auto 0.01 X10*3/uL (0.00-0.03); Imm Gran Pct Auto 0.2 % (0.0-0.4); Lymphocytes Absolute Auto 2.5 X10*3/uL (1.2-4.9); Lymphocytes Percent Auto 48.9 % (20-40); Mean Corpuscular HGB Conc 32.1 g/dl (31.0-36.0); Mean Corpuscular Volume 84.2 fL (80.0-98.0); Mean Platelet Volume 11.5 fL (9.4-12.4); Monocytes Absolute Auto 0.4 X10*3/uL (0.1-1.2); Monocytes Percent Auto 7.2 % (2-11); Neutrophils Absolute Auto 2.1 x10*3/uL (2.0-8.3); Neutrophils Percent Auto 41.5 % (45-73); Platelet Count 226 X10*3/uL (160-400); Red Blood Count 5.88 X10*6/uL (4.60-5.80); Red Cell Distribution Width 12.4 % (11.0-16.0); White Blood Count 5.1 X10*3/uL (4.8-10.8)
== END 2023-02-05 08:19 | disposition home or self-care (01) ==
LOC: HO.WFDLDS 08:18
PROVIDERS: Visit Provider Internal Medicine Gastroenterology
DX: R10.11 Right upper quadrant pain (principal); K52.9 Noninfective gastroenteritis and colitis, unspecified
CPT/HCPCS: 36415; 85025

== ENCOUNTER 2023-02-16 08:40 | Outpatient (REF) | payer OTHER, SELFPAY ==
[2023-02-16] MEDS: iohexoL 350 MG/ML 100 ML INFUS..BTL IV (10:31)
== END 2023-02-16 08:41 | disposition home or self-care (01) ==
LOC: HO.CT 08:40
PROVIDERS: Visit Provider Internal Medicine Gastroenterology
DX: R10.33 Periumbilical pain (principal); R10.11 Right upper quadrant pain; K52.9 Noninfective gastroenteritis and colitis, unspecified
CPT/HCPCS: 74177; Q9967

== ENCOUNTER 2023-03-08 10:19 | Outpatient (REF) | payer OTHER, SELFPAY ==
[2023-03-08 14:40] LABS: MANUAL DIFF FLAG NO
[2023-03-08 14:58] LABS: Basophils Absolute Auto 0.1 X10*3/uL (0.0-0.2); Basophils Percent Auto 1.1 % (0-2); Eosinophils Percent Auto 0.4 % (0-4); Hematocrit 51.4 % (42.0-52.0); Hemoglobin 16.6 g/dl (14.0-18.0); Imm Gran Abs Auto 0.02 X10*3/uL (0.00-0.03); Imm Gran Pct Auto 0.4 % (0.0-0.4); Lymphocytes Absolute Auto 1.8 X10*3/uL (1.2-4.9); Lymphocytes Percent Auto 34.3 % (20-40); Mean Corpuscular HGB Conc 32.3 g/dl (31.0-36.0); Mean Corpuscular Hemoglobin 27.1 pg (27.0-33.0); Mean Platelet Volume 11.2 fL (9.4-12.4); Monocytes Absolute Auto 0.4 X10*3/uL (0.1-1.2); Monocytes Percent Auto 7.7 % (2-11); Neutrophils Absolute Auto 2.9 x10*3/uL (2.0-8.3); Neutrophils Percent Auto 56.1 % (45-73); Platelet Count 269 X10*3/uL (160-400); Red Blood Count 6.12 X10*6/uL (4.60-5.80); Red Cell Distribution Width 12.4 % (11.0-16.0); White Blood Count 5.2 X10*3/uL (4.8-10.8)
[2023-03-08 15:09] LABS: Anion Gap 14 (12-20); Blood Urea Nitrogen 14 mg/dL (9-16); Calcium 10.4 mg/dL (8.4-10.2); Carbon Dioxide 25 mmol/L (22-29); Chloride 105 mmol/L (96-108); Estimated Glomerular Filt Rate > 60; Glucose Random 94 mg/dL (60-115); Potassium 4.2 mmol/L (3.3-5.1); Sodium 140 mmol/L (135-145); Uric Acid 6.2 mg/dL (3.4-7.0)
[2023-03-08 15:32] LABS: Erythrocyte Sedimentation Rate 2 MM/HR (0-15)
[2023-03-08 16:34] LABS: CT PCR NOT DETECTED (Not Detect.); NG PCR NOT DETECTED (Not Detect.)
[2023-03-09 09:13] LABS: Syphilis Screen Nonreactive (Nonreactive)
[2023-03-09 09:35] LABS: HBS Num1 105.83 mIU/mL (0-7.99); HBc Num1 6.54 S/CO (0.00-0.79); HBsAGNum1 0.31 S/CO (0.00-0.99); HIV AB/AG Nonreactive (Nonreactive); HIV Num 1 0.06 S/CO (0.00-0.99); Hepatitis B Surface Antigen Negative (Negative); ~HepC Num1 0.05 S/CO (0.00-0.79); ~Hepatitis B Surface Antibody REACTIVE (Nonreactive); ~Hepatitis C Antibody Nonreactive (Nonreactive)
[2023-03-09 11:48] LABS: HBc Num2 6.64 S/CO; HBc Num3 6.68 S/CO; Hepatitis B Core Antibody Reactive (Nonreactive)
== END 2023-03-08 10:20 | disposition home or self-care (01) ==
LOC: HO.WFDLDS 10:19
PROVIDERS: Visit Provider Family Medicine
DX: Z00.00 Encounter for general adult medical examination without abnormal findings (principal); Z11.4 Encounter for screening for human immunodeficiency virus [HIV]; M79.673 Pain in unspecified foot; Z20.2 Contact with and (suspected) exposure to infections with a predominantly sexual mode of transmission
CPT/HCPCS: 0353U; 36415; 80048; 84550; 85025; 85652; 86704; 86706; 86780; 86803; 87340; 87389

== ENCOUNTER → 2023-03-11 13:05 | Outpatient (AMB) | payer OTHER, SELFPAY ==
[2023-03-11 13:49] VITALS: BP 118/70; PULSE 80; RESP 13; TEMP 36.4; O2SAT 98; BMI 27.2
--- NOTE | 2023-03-11 13:49 | MHC.OFFWIV ---
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 Trialed ibuprofen and Tylenol, prednisone which helped minimally. Has also been using ice/heat and elevation. [facility] Medical History Gastritis and duodenitis Surgical History History of esophagogastroduodenoscopy (EGD) Hx of colonoscopy Social History Are you a primary care consultant to a significant other at home: No Do you presently have visiting nurse or other home services: No Patient Tobacco Use Status: Never used Tobacco Review of Systems Const Denies chills, Denies fatigue, Denies fever(s), Denies headache(s) and Denies weakness ENT Denies dizziness and Denies headache(s) Card Denies dyspnea Resp Denies cough, Denies dyspnea, Denies wheezing and Denies other (shortness of breath) Musc Denies numbness and Denies tingling Neuro Denies dizziness, Denies headache(s), Denies numbness, Denies tingling and Denies weakness Psych Denies anxiety and Denies depression Endo Denies fatigue Aller/Immun Denies wheezing Physical Exam Vital Signs: Last Vital Signs Temp 97.6 F 03/11/23 13:49 Pulse 80 03/11/23 13:49 Resp 13 03/11/23 13:49 BP 118/70 03/11/23 13:49 Pulse Ox 98 03/11/23 13:49 Oxygen Delivery Method Room Air 03/11/23 13:49 BMI result Body Mass Index 27.2 Const General: well developed; No acute distress Nutritional Appearance: well nourished Orientation/consciousness: patient oriented x3 HEENT Head: Yes normocephalic and Yes atraumatic Eyes General: appearance normal, both eyes and all related structures Pupils: Equal, round and reactive pupils present EOM: EOMs intact bilaterally Resp Effort & Inspection: normal respiratory effort Neuro General: patient oriented x3 and gait normal Cranial nerves: Yes Equal, round and reactive pupils present Extrem Other: Pain and swelling at dorsal aspect of L foot over the lateral mid foot proximal 4th and 5th metatarsals Psych Affect: normal affect Assessment & Plan Assessment & Plan (1) Left foot pain: Code(s): M79.672 - Pain in left foot Plan: Exquisite?Pain?swelling?and?redness?over?proximal?4th?and?5th?metatarsals. Had?tried?ibuprofen?and?Tylenol.??Has?been?using?ice?and?heat?and?elevation. Had?tried?prednisone?which?helped?minimally Patient?would?like?to?try?gabapentin?as?he?feels?there?is?a?neurogenic?component.??Will?give?him?a?script?for?gabapentin. Location?could?be?a?Lisfranc?tendinous?or?ligamentous?injury?though?I?doubt?fracture. Will?check?x-ray If?not?improving?with?above?regimen,?will?refer?to?ortho Orders: Orders XR foot LT min 3V Today M79.672 - Pain in left foot Medications: New gabapentin 200 mg (2 x 100 mg) PO TID 180 caps 0RF 30 days Coding Level of Care Code Est Pt Level 3 (89525) Diagnoses Left foot pain M79.672
== END ==
PROVIDERS: Visit Provider Family Medicine
DX: M79.672 Pain in left foot (principal)
CPT/HCPCS: 99213

== ENCOUNTER 2023-03-12 08:29 | Outpatient (REF) | payer OTHER, SELFPAY ==
--- NOTE | ~2023-03-12 | XR_ITS ---
EXAMINATION: XR FOOT, LEFT CLINICAL INFORMATION: Pain COMPARISON: None available. TECHNIQUE: AP, lateral, and oblique views of the left foot. FINDINGS: Minimal plantar spurring. The bones and soft tissues are normal. No fracture. Alignment is anatomic. Joint spaces are maintained. XR/XR foot LT min 3V IMPRESSION: No acute bony pathology.
== END 2023-03-12 08:30 | disposition home or self-care (01) ==
LOC: HO.HMGCX 08:29
PROVIDERS: Visit Provider Family Medicine
DX: M79.672 Pain in left foot (principal)
CPT/HCPCS: 73630

== ENCOUNTER 2023-03-15 12:08 | Outpatient (AMB) | payer OTHER, SELFPAY ==
[2023-03-15 12:25] VITALS: BMI 27.2
--- NOTE | 2023-03-15 12:25 | A.OFFVIS_ITS ---
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 Patient reports having ongoing pain on the lateral aspect of the foot. Having numbness and tingling in his toes which started a couple days after 03/06/23. 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 The [facility]. He reports ongoing pain on the lateral aspect of the left foot. He confirms numbness or tingling of the toes which he states began a couple of days ago after 03/06/2023. He was prescribed a prednisone taper with no relief. He has had similar symptoms in the past and tried prednisone and ibuprofen which resolved the symptoms. However, this time it is progressively getting worse. Uric acid labs, obtained on 03/08/2023, were 6.2. [facility] Medical History Gastritis and duodenitis Surgical History History of esophagogastroduodenoscopy (EGD) Hx of colonoscopy Social History Are you a primary care partner to a significant other at home: No Do you presently have visiting nurse or other home services: No Patient Tobacco Use Status: Never used Tobacco Review of Systems Const All systems reviewed & are unremarkable except as noted in HPI and below Physical Exam Vital Signs: BMI result Body Mass Index 27.2 Const General: cooperative and no acute distress Orientation/consciousness: patient oriented x3 Resp Effort & Inspection: normal respiratory effort and able to speak in complete sentences Cardio Peripheral pulses: Peripheral pulses 2+ throughout Skin General skin exam: no rashes or lesions noted Neuro General: patient oriented x3 Extrem Other: Left foot: Point tenderness, surrounded with edema over the base of the 4th metatarsal. No tenderness to palpation over the base of the 5th metatarsal. Able to dorsiflex, plantarflex, pronate, and supinate, with no limitations. Reports numbness and tingling in all digits. Capillary refill is brisk. Pedal pulse is intact. Assessment & Plan Assessment & Plan (1) Left foot pain: Code(s): M79.672 - Pain in left foot Plan 42-year-old male who presents in the office today for an evaluation of left foot pain. The patient was [facility]23. He reports ongoing pain on the lateral aspect of the left foot. He confirms numbness or tingling of the toes which he states began a couple of days ago after 03/06/2023. He was prescribed a prednisone taper with no relief. He has had similar symptoms in the past and tried prednisone and ibuprofen which resolved the symptoms. However, this time it is progressively getting worse. Uric acid labs, obtained on 03/08/2023, were 6.2. We discussed the role of a walking boot. However, the patient states he has extreme tenderness with any object rubbing the affected area like a shoe or sock. I have placed an order for an MRI to further evaluate the integrity of the left foot and surrounding tissues. He will call the office after the MRI is obtained. We will discuss the results over a telehealth visit. I also sent in a prescription for Tramadol 50 mg PO Q8H PRN to the pharmacy. Follow up will be after the MRI is obtained for a telehealth visit, or sooner if needed. X-rays of the left foot, obtained on 03/12/2023, revealed: No acute bony pathology. Orders: Orders MR foot LT wo con Today M79.672 - Pain in left foot Medications: New tramadol 50 mg PO Q8H PRN 21 tabs 0RF pain 7 days Patient Instructions: Scribed for Jaymie He PA-C by Lizzie Sosa medical laboratory technician, on 03/15/2023 at 12:13 pm, EST. Coding Level of Care Code New Pt Level 4 (70892) Diagnoses Left foot pain M79.672
== END 2023-03-15 13:04 | disposition home or self-care (01) ==
PROVIDERS: Visit Provider Physician Assistant
DX: M79.672 Pain in left foot (principal)
CPT/HCPCS: 99204

== ENCOUNTER → 2023-03-15 12:08 | Outpatient (BNVA) | payer OTHER, SELFPAY | PROVIDERS: Visit Provider Physician Assistant ==

== ENCOUNTER 2023-03-16 17:25 | Outpatient (REF) | payer OTHER, SELFPAY ==
--- NOTE | ~2023-03-16 | MR_ITS ---
EXAMINATION: MR FOOT WITHOUT CONTRAST, LEFT CLINICAL INFORMATION: Lateral anterior foot pain and swelling. COMPARISON: Most recent left foot radiographs dated 03/12/2023. TECHNIQUE: Altered sequence MR imaging of the left foot was obtained without contrast on a high-field strength scanner. FINDINGS: BONE: There is mildly increased T2 signal within the proximal metaphysis of the 4th and 5th metatarsals. Minimal adjacent periosteal reaction/soft tissue edema. Findings could represent stress reactions or osseous contusions. No associated fracture line. Intact articular cartilage. No concerning lytic or blastic osseous lesion. MUSCLES/TENDONS: The visualized flexor and extensor tendons are intact. No transverse tendon tear or tendon retraction. LIGAMENTS: Intact Lisfranc ligament. The plantar plates are intact. SOFT TISSUES: Xbdo-ki-gomehpwu dorsal subcutaneous edema. Along the lateral aspect of the 4th metatarsal base, there is a cystic structure measuring up to 1.8 x 0.4 cm which could represent a synovial recess versus ganglion cyst. MR/MR foot LT wo con IMPRESSION: 1. Mildly increased T2 signal within the proximal metaphysis of the 4th and 5th metatarsals with minimal adjacent periosteal reaction and soft tissue edema. Findings could represent stress reactions or osseous contusions. No associated fracture line. 2. Synovial recess versus ganglion cyst along the lateral aspect of the 4th metatarsal base measuring up to 1.8 cm. 3. Jyqv-hn-tnbpqpic dorsal subcutaneous edema.
== END 2023-03-16 17:26 | disposition home or self-care (01) ==
LOC: HO.MRI 17:25
PROVIDERS: Visit Provider Physician Assistant
DX: M79.672 Pain in left foot (principal)
CPT/HCPCS: 73718

== ENCOUNTER 2023-05-12 09:53 | Outpatient (REF) | payer OTHER, SELFPAY ==
[2023-05-14 21:28] LABS: TS Negative Control Passed; TS Panel A 0; TS Panel B 0; TS Positive Control Passed; TSpotTB Negative (Negative)
== END 2023-05-12 09:54 | disposition home or self-care (01) ==
LOC: HO.WFDLDS 09:53
PROVIDERS: Visit Provider Family Medicine
DX: Z11.1 Encounter for screening for respiratory tuberculosis (principal)
CPT/HCPCS: 36415; 86481

== ENCOUNTER 2023-05-12 13:15 | Outpatient (AMB) | payer OTHER, SELFPAY ==
[2023-05-12 11:45] VITALS: BP 122/68; PULSE 73; RESP 16; TEMP 36.7; O2SAT 99; BMI 27.9
--- NOTE | 2023-05-12 11:45 | MHC.PC.OV ---
Vital Signs 05/12/23 11:45 Height 5 ft 11 in Weight 200 lb BMI 27.9 BP 122/68 Respiration 16 Pulse 73 Pulse Source Pulse Oximeter Temp 98.0 F Temp Source Oral Pulse Oximetry (%) 99 Oxygen Delivery Method Room Air Intake Visit Reasons: CPE Intake Note: Patient is here today for his physical. Allergies No Known Allergies Allergy (Verified 05/12/23 11:46) Tobacco use date assessed: 05/12/23 HPI CPE HPI Details Patient?presents?for?complete?physical?exam Unremarkable?past?medical?history?and?currently?taking?no?medications. Feels?well,?no?complaints. PFSH Medical History Gastritis and duodenitis Surgical History Hx of colonoscopy History of esophagogastroduodenoscopy (EGD) Social History Are you a primary child care center assistant director to a significant other at home: No Do you presently have visiting nurse or other home services: No Patient Tobacco Use Status: Never used Tobacco e-Cigarette/Vaping Use: Never Used Current occupational status: employed Current occupation: [employer] @ [employer] Questionnaire PHQ-9 Over the last 2 weeks, how often have you been bothered by any of the following problems? 1. Little interest or pleasure in doing things: not at all 2. Feeling down, depressed, or hopeless: not at all 3. Trouble falling or staying asleep, or sleeping too much: not at all 4. Feeling tired or having little energy: not at all 5. Poor appetite or overeating: not at all 6. Feeling bad about yourself - or that you are a failure or have let yourself or your family down: not at all 7. Trouble concentrating on things, such as reading the newspaper or watching television: not at all 8. Moving or speaking so slowly that other people could have noticed. Or the opposite - being so fidgety or restless that you have been moving around a lot more than usual: not at all 9. Thoughts that you would be better off or of hurting yourself in some way: not at all Total score: 0 Source: Developed by Drs. Rich Marie, Nancy Phillip, Chon Cordero and colleagues, with an educational sukhwinder from [employer]. MANDY-7 AMB Questionnaire MANDY-7 Date MANDY - 7 assessed: 05/12/23 Feeling nervous, anxious, or on edge: 0 = Not at all Not being able to stop or control worryin = Not at all Worrying too much about different things: 0 = Not at all Trouble relaxin = Not at all Being so restless that it is hard to sit still: 0 = Not at all Becoming easily annoyed or irritable: 0 = Not at all Feeling afraid as if something awful might happen: 0 = Not at all Total MANDY-7 score (0-4 normal; 5-9 mild; 10-14 moderate; 15-21 severe): 0 Source: Developed by Drs. Rich Marie, Nancy Phillip, Chon Cordero and colleagues, with an educational sukhwinder from [employer]. Review of Systems Const Denies chills, Denies fatigue, Denies fever(s), Denies headache(s) and Denies weakness Eyes Denies change in vision ENT Denies dizziness, Denies headache(s), Denies hearing loss, Denies nasal congestion, Denies sinus pain, Denies sinus pressure and Denies sore throat Card Denies chest pain, Denies lightheadedness, Denies dyspnea and Denies other (palpitations) Resp Denies cough, Denies dyspnea and Denies wheezing GI Denies abdominal pain, Denies melena, Denies hematochezia, Denies change in bowel habits, Denies dyspepsia and Denies nausea Denies hematuria and Denies dysuria Musc Denies abnormal gait, Denies myalgias, Denies arthralgias, Denies numbness and Denies tingling Skin/Breast Denies rash, Denies unusual bruising and Denies wounds Neuro Denies abnormal gait, Denies dizziness, Denies headache(s), Denies memory loss, Denies numbness, Denies Sensory deficit (Neuro), Denies tingling and Denies weakness Psych Denies anxiety, Denies depression and Denies memory loss Endo Denies cold intolerance, Denies fatigue, Denies heat intolerance, Denies polydipsia and Denies polyuria Syed/Lymph Denies easy bleeding and Denies easy bruising Aller/Immun Denies wheezing Physical exam (Primary Care) Vital Signs: Last Vital Signs Temp 98.0 F 05/12/23 11:45 Pulse 73 05/12/23 11:45 Resp 16 05/12/23 11:45 BP 122/68 05/12/23 11:45 Pulse Ox 99 05/12/23 11:45 Oxygen Delivery Method Room Air 05/12/23 11:45 BMI result Body Mass Index 27.9 Tobacco/Smoking Status: Tobacco use Status Tobacco use date assessed 05/12/23 05/12/23 11:54 Patient Tobacco Use Status Never used Tobacco 05/12/23 11:54 e-Cigarette/Vaping Use Never Used 05/12/23 11:54 PHQ-9: PHQ-9 Score PHQ-9: Total score 0 05/12/23 12:01 Const General: no acute distress, well developed, alert and awake Nutritional Appearance: well nourished Orientation/consciousness: patient oriented x3 HENMT Head: Yes normocephalic and Yes atraumatic Ears: hearing grossly normal bilaterally and TM's normal bilaterally General nose exam: Normal external nose present and Normal nares present Mouth: Normal oral and palatal mucosa present and moist mucous membranes Teeth and gingiva: dentition normal Throat: Yes posterior oropharynx normal Eyes Pupils: Equal, round and reactive pupils present and Pupil accommodation reflex normal EOM: EOMs intact bilaterally Neck Neck: Yes normal visual inspection, Yes no lymphadenopathy and Yes trachea midline Thyroid: Thyroid normal Carotids: no bruits Lymphatic: no lymphadenopathy noted Chest Chest palpation & inspection: normal inspection of the chest Resp Effort & Inspection: normal respiratory effort Auscultation: clear to auscultation bilaterally Cardio Rate: regular rate Rhythm: regular rhythm Heart sounds: S1 normal heart sound present, S2 normal heart sound present, no gallops, no murmurs and no rubs Bruits: no abdominal aortic bruits and no carotid bruits GI Palpation (GI): No Abdominal aortic bruit present, Soft to palpation, nontender, No hepatosplenomegaly present and No Rebound tenderness present Auscultation: normal bowel sounds General: Yes no CVA tenderness Back/Spine/Pelvis Back: no CVA tenderness Cervical Spine: cervical ROM normal and No Cervical spine tenderness Thoracic/Lumbar Spine: thoraco-lumbar ROM normal, No pain with thoraco-lumbar ROM, No thoracic spinal tenderness and No lumbar spinal tenderness Skin Lesions: no lesions Rashes: no rashes Trauma: no lacerations or abrasions Wounds: no wounds Nails: normal Neuro General: patient oriented x3, gait normal and CN's II-XI intact bilaterally Cranial nerves: Yes Equal, round and reactive pupils present Cognition (Neuro): normal cognition Gait exam (Neuro): Normal gait present Motor exam (neuro): 5/5 motor strength present throughout Sensory Exam: No Sensory deficit (Neuro) Deep tendon reflexes (DTR's): Right patellar reflex intensity grade: 2+ and Left patellar reflex intensity grade: 2+ Extrem General: Yes normal to inspection and No edema Psych Appearance: grossly normal Affect: normal affect Attitude: cooperative Thought process: Normal thought process present Assessment and Plan Assessment & Plan (1) Adult general medical exam: Code(s): Z00.00 - Encounter for general adult medical examination without abnormal findings Plan: Well-appearing?42-year-old?male?presents?for?complete?physical?exam Exam?within?normal?limits. Encouraged?healthy?diet?with?active?lifestyle?and?plenty?of?exercise (2) Screening for prostate cancer: Code(s): Z12.5 - Encounter for screening for malignant neoplasm of prostate Plan: Due?for?screening?for?prostate?cancer No?complaint PSA?ordered Orders: Orders Prostate Specific Antigen Scr Today Z12.5 - Encounter for screening for malignant neoplasm of prostate TSH reflex Free T4 Today Z00.00 - Encounter for general adult medical examination without abnormal findings UA and rflx microscopic Today Z00.00 - Encounter for general adult medical examination without abnormal findings Complete Blood Count Auto Diff Today Z00.00 - Encounter for general adult medical examination without abnormal findings Comprehensive [place]. Panel Fast Today Z00.00 - Encounter for general adult medical examination without abnormal findings Lipid Panel Today Z00.00 - Encounter for general adult medical examination without abnormal findings Microalbumin, Random (w Creat) Today I10 - Essential (primary) hypertension Vitamin D 25-OH Total Today E55.9 - Vitamin D deficiency, unspecified Coding Level of Care Code Est Pt Prev Care 40-64y(21200) Diagnoses Adult general medical exam Z00.00 Screening for prostate cancer Z12.5
== END 2023-05-12 14:03 | disposition home or self-care (01) ==
LOC: HO.HMGFM 14:02
PROVIDERS: PCP Nurse Practitioner Family; Visit Provider Family Medicine
DX: Z00.00 Encounter for general adult medical examination without abnormal findings (principal); Z12.5 Encounter for screening for malignant neoplasm of prostate
CPT/HCPCS: 99173; 99396

== ENCOUNTER 2023-05-13 | Outpatient (REF) | payer OTHER, SELFPAY ==
[2023-05-13 14:26] LABS: Appearance Urine Clear; Color Urine Yellow; Glucose Urine UA Negative (Negative); Leukocyte Esterase Urine Negative (Negative); Nitrite Urine Negative (Negative); PH 5.5 (5.0-9.0); Urine Blood Negative (Negative); Urine Ketones Negative (Negative); Urine Protein Negative (Neg-Trace)
[2023-05-13 14:41] LABS: Creatinine Urine 56.42 mg/dL; Microalbum/Creatinine Ratio Ur 12.4 ug/mg cr (<30)
== END 2023-05-13 00:01 | disposition home or self-care (01) ==
LOC: HO.LNP
PROVIDERS: Visit Provider Family Medicine
DX: I10 Essential (primary) hypertension (principal)
CPT/HCPCS: 81003; 82043; 82570

== ENCOUNTER 2023-05-18 11:59 | Outpatient (REF) | payer OTHER, SELFPAY ==
[2023-05-18 14:58] LABS: MANUAL DIFF FLAG NO
[2023-05-18 15:03] LABS: Basophils Absolute Auto 0.1 X10*3/uL (0.0-0.2); Basophils Percent Auto 1.4 % (0-2); Eosinophils Percent Auto 0.6 % (0-4); Hematocrit 51.4 % (42.0-52.0); Hemoglobin 16.6 g/dl (14.0-18.0); Imm Gran Abs Auto 0.01 X10*3/uL (0.00-0.03); Imm Gran Pct Auto 0.2 % (0.0-0.4); Lymphocytes Absolute Auto 2.5 X10*3/uL (1.2-4.9); Lymphocytes Percent Auto 50.4 % (20-40); Mean Corpuscular HGB Conc 32.3 g/dl (31.0-36.0); Mean Corpuscular Hemoglobin 26.7 pg (27.0-33.0); Mean Corpuscular Volume 82.6 fL (80.0-98.0); Mean Platelet Volume 11.2 fL (9.4-12.4); Monocytes Absolute Auto 0.4 X10*3/uL (0.1-1.2); Monocytes Percent Auto 8.1 % (2-11); Neutrophils Absolute Auto 1.9 x10*3/uL (2.0-8.3); Neutrophils Percent Auto 39.3 % (45-73); Platelet Count 211 X10*3/uL (160-400); Red Blood Count 6.22 X10*6/uL (4.60-5.80); Red Cell Distribution Width 12.7 % (11.0-16.0); White Blood Count 4.9 X10*3/uL (4.8-10.8)
[2023-05-18 15:45] LABS: Prostate Specific Antigen Scr 0.55 ng/mL (<0.05-4.0)
[2023-05-18 15:48] LABS: Alanine Aminotransferase 24 U/L (0-40); Albumin Level 4.8 g/dL (3.5-5.0); Alkaline Phosphatase 61 U/L (39-117); Anion Gap 14 (12-20); Aspartate Amino Transferase 30 U/L (5-37); Bilirubin Total 0.4 mg/dL (0.0-1.0); Blood Urea Nitrogen 11 mg/dL (9-16); Calcium 10.1 mg/dL (8.4-10.2); Carbon Dioxide 29 mmol/L (22-29); Chloride 103 mmol/L (96-108); Cholesterol 265 mg/dL (<200); Estimated Glomerular Filt Rate > 60; Glucose Fasting 95 mg/dL (60-99); HDL Cholesterol 51 mg/dL (>40); LDL Cholesterol Calculated 187 mg/dL (<100); Potassium 3.9 mmol/L (3.3-5.1); Sodium 142 mmol/L (135-145); Total Protein 8.1 g/dL (6.5-8.0); Triglycerides 138 mg/dL (<150)
[2023-05-18 15:52] LABS: TSH reflex Free T4 2.88 uIU/mL (0.32-4.0); Vitamin D 25-OH Total 15.7 ng/mL (>30)
== END 2023-05-18 12:00 | disposition home or self-care (01) ==
LOC: HO.WFDLDS 11:59
PROVIDERS: Visit Provider Family Medicine
DX: Z00.00 Encounter for general adult medical examination without abnormal findings (principal); Z12.5 Encounter for screening for malignant neoplasm of prostate; E55.9 Vitamin D deficiency, unspecified
CPT/HCPCS: 36415; 80053; 80061; 82306; 84153; 84443; 85025

== ENCOUNTER 2023-10-04 09:29 | Outpatient (REF) | payer OTHER, SELFPAY ==
[2023-10-04 12:11] LABS: Alanine Aminotransferase 22 U/L (0-40); Albumin Level 4.7 g/dL (3.5-5.0); Alkaline Phosphatase 56 U/L (39-117); Anion Gap 14 (12-20); Aspartate Amino Transferase 33 U/L (5-37); Bilirubin Total 0.6 mg/dL (0.0-1.0); Blood Urea Nitrogen 15 mg/dL (9-16); Calcium 10.5 mg/dL (8.4-10.2); Carbon Dioxide 27 mmol/L (22-29); Chloride 102 mmol/L (96-108); Cholesterol 255 mg/dL (<200); Estimated Glomerular Filt Rate 58; Glucose Fasting 90 mg/dL (60-99); HDL Cholesterol 48 mg/dL (>40); LDL Cholesterol Calculated 185 mg/dL (<100); Potassium 4.1 mmol/L (3.3-5.1); Sodium 139 mmol/L (135-145); Triglycerides 110 mg/dL (<150); Vitamin D 25-OH Total 42.1 ng/mL (>30)
== END 2023-10-04 09:30 | disposition home or self-care (01) ==
LOC: HO.WFDLDS 09:29
PROVIDERS: Visit Provider Family Medicine
DX: Z00.00 Encounter for general adult medical examination without abnormal findings (principal); K52.9 Noninfective gastroenteritis and colitis, unspecified; E55.9 Vitamin D deficiency, unspecified
CPT/HCPCS: 36415; 80053; 80061; 82306

== ENCOUNTER 2023-10-30 04:47 | Inpatient (IN) | payer OTHER, SELFPAY ==
[2023-10-30] VITALS (11 sets, daily range): BP systolic 121–154; BP diastolic 70–83; PULSE 76–97; RESP 16–19; TEMP 36–36.8; O2SAT 93–100; BMI 27.9
--- NOTE | ~2023-10-30 | CT_ITS ---
EXAMINATION: CT ABDOMEN AND PELVIS WITH CONTRAST CLINICAL INFORMATION: Epigastric pain. COMPARISON: CT enterography 02/16/2023. TECHNIQUE: Multidetector volumetric images were obtained from the superior aspect of the liver through the pubic symphysis following administration 85 mL of Omnipaque 350 intravenous contrast. Sagittal and coronal reformatted images were obtained on the technologist's workstation. Oral contrast: No This CT examination was performed using dose optimization techniques as appropriate, variously including the following: *Automated exposure control *Adjustment of mA and/or kV according to patient size (this includes techniques or standardized protocols for targeted exams where dose is matched to indication/reason for exam; i.e. extremities or head) *Use of iterative reconstruction technique DLP: 505 mGy-cm FINDINGS: LUNG BASES: No focal consolidation or pleural effusion. LIVER, GALLBLADDER, AND BILIARY TREE: The liver is normal in size, shape, and attenuation. No focal hepatic lesion or biliary ductal dilatation is present. The gallbladder is unremarkable with no evidence of radiopaque gallstones, gallbladder wall thickening, or obvious pericholecystic inflammatory changes. PANCREAS: Unremarkable. SPLEEN: Unremarkable. ADRENAL GLANDS: Unremarkable. KIDNEYS AND URETERS: The kidneys are normal in size, shape, and attenuation. Speckles of contrast in the bilateral collecting systems limiting evaluation of small calculi. No hydronephrosis. No renal mass. No perinephric stranding. BLADDER: Unremarkable. GASTROINTESTINAL TRACT: Dilated appendix measuring up to 1.1 cm in diameter with a 0.9 cm appendicolith in the distal portion and a 1.1 cm appendicolith near the base of the appendix (coronal images 32 and 31, series 7). Mild periappendiceal fat stranding. No evidence of free air. No evidence of organized extraluminal collection. Mild dilatation of the distal ileum is most likely related with reactive ileus in the context of appendicitis. No pericolonic fat stranding or free fluid. ABDOMINAL WALL: No significant hernia is appreciated. LYMPH NODES: No lymphadenopathy. VASCULAR: Normal caliber abdominal aorta. PELVIC VISCERA: Unremarkable. OSSEOUS STRUCTURES: No acute or aggressive appearing osseous findings. CT/CT abdomen pelvis w IV con IMPRESSION: Findings are most consistent with acute uncomplicated appendicitis.
[2023-10-30 05:01] LABS: Basophils Absolute Auto 0.1 X10*3/uL (0.0-0.2); Basophils Percent Auto 0.7 % (0-2); Eosinophils Absolute Auto 0.1 X10*3/uL (0.0-0.4); Eosinophils Percent Auto 0.7 % (0-4); Hematocrit 47.1 % (42.0-52.0); Hemoglobin 15.8 g/dl (14.0-18.0); Imm Gran Abs Auto 0.02 X10*3/uL (0.00-0.03); Imm Gran Pct Auto 0.2 % (0.0-0.4); Lymphocytes Absolute Auto 2.3 X10*3/uL (1.2-4.9); Lymphocytes Percent Auto 25.9 % (20-40); MANUAL DIFF FLAG NO; Mean Corpuscular HGB Conc 33.5 g/dl (31.0-36.0); Mean Corpuscular Hemoglobin 26.9 pg (27.0-33.0); Mean Corpuscular Volume 80.2 fL (80.0-98.0); Mean Platelet Volume 9.8 fL (9.4-12.4); Monocytes Absolute Auto 0.6 X10*3/uL (0.1-1.2); Monocytes Percent Auto 6.7 % (2-11); Neutrophils Percent Auto 65.8 % (45-73); Platelet Count 205 X10*3/uL (160-400); Red Blood Count 5.87 X10*6/uL (4.60-5.80); Red Cell Distribution Width 12.3 % (11.0-16.0)
[2023-10-30 05:24] LABS: Alanine Aminotransferase 22 U/L (0-40); Albumin Level 4.5 g/dL (3.5-5.0); Alkaline Phosphatase 60 U/L (39-117); Anion Gap 14 (12-20); Aspartate Amino Transferase 30 U/L (5-37); Bilirubin Total 0.3 mg/dL (0.0-1.0); Blood Urea Nitrogen 13 mg/dL (9-16); Carbon Dioxide 25 mmol/L (22-29); Chloride 105 mmol/L (96-108); Creatinine Clr Calc Pharmacy 88.7; Estimated Glomerular Filt Rate > 60; Glucose Random 131 mg/dL (60-115); Lipase 25 U/L (8-78); Potassium 3.4 mmol/L (3.3-5.1); Sodium 141 mmol/L (135-145); Total Protein 7.5 g/dL (6.5-8.0)
--- NOTE | 2023-10-30 05:30 | PC.NURSE ---
pt to nurses station asking about wait time to see provider; explained that provider will be in as soon as she can. states he is there for dizziness and vomiting blood. also concerned about having a high systolic in the 150's. provided reassurance that he would be seen as soon as MD is available. pt then began to walk around into the nurses station asking where the doctor was, he wanted to speak with her in regards to being seen next. pt ambulating with a steady gait. pt was able to be redirected back to his room.
--- NOTE | 2023-10-30 05:56 | ED_ITS ---
HPI - Abdominal Pain General Chief Complaint: Abdominal Pain Stated Complaint: abd pain Time Seen by Provider: 10/30/23 06:39 Source: patient Mode of arrival: ambulatory Limitations: no limitations History of Present Illness ED Provider: Dr. uJ Chavarria HPI narrative: Patient comes to emergency room complaining of nausea, vomiting and epigastric pain. Patient states that all of his symptoms started approximately 3 hours ago, the pain woke him up from sleep. Patient states that he had projectile vomiting, patient states that he saw blood in the vomitus. Patient denies black stool, no diarrhea. Patient denies any previous illnesses, denies drinking alcohol. Related Data Previous Rx's ?Medication ?Instructions ?Recorded cholecalciferol (vitamin D3) 50 50 mcg PO DAILY 90 days #90 caps 05/28/23 mcg (2,000 unit) capsule Allergies Allergy/AdvReac Type Severity Reaction Status Date / Time No Known Allergies Allergy Verified 10/30/23 04:51 Review of Systems Review of Systems Constitutional : No Weight loss, No Fever, No Chills, No Night Sweats, No Fatigue, No Malaise ENT/Mouth : No Hearing loss, No Ear Pain, No Nasal Congestion, No Sinus Pain, No Hoarseness, No sore throat, No Rhinorrhea, No Swallowing Difficulty Eyes: No Eye Pain, No Swelling, No Redness, No Foreign Body, No Discharge, No Vision Changes Cardiovascular : No Chest Pain, No SOB, No Dyspnea on Exertion, No Orthopnea, No Edema, No Palpitations Respiratory : No Cough, No Sputum, No Wheezing, No Smoke Exposure, No Dyspnea Gastrointestinal : Complaining of nausea, projectile vomiting, hematemesis, epigastric/upper abdominal pain, No Hematochezia, No Melena Genitourinary : no irregular bleeding, No Dysuria, No Urinary Frequency, No Hematuria, No Urinary Incontinence, No Urgency, No Flank Pain, No Urinary Flow Changes, No Hesitancy Musculoskeletal : No joint pain, No Myalgias, No Joint Swelling Skin : No Skin Lesions, No rash Neuro : No Weakness, No Numbness, No Paresthesias, No Loss of Consciousness, No Dizziness, No Headache Psych : No Anxiety/Panic, No Depression, No SI/HI/AH/VH, No Social Issues, Heme/Lymph: No Bruising, No Bleeding,No Lymphadenopathy Endocrine : No Polyuria, No Polydipsia, No Temperature Intolerance PMFSH Past Medical History Medical History Gastritis and duodenitis Surgical History Hx of colonoscopy History of esophagogastroduodenoscopy (EGD) Social History Social History Are you a primary intensive care nurse to a significant other at home: No Do you presently have visiting nurse or other home services: No Patient Tobacco Use Status: Never used Tobacco e-Cigarette/Vaping Use: Never Used Advance Directives: No Advance Directives Information Provided: Yes Do you have a plan to hurt others: No Plan Nutrition Risks: No Nutritional Risk Current occupational status: employed 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 Oriented X3. Seems uncomfortable, in pain, actively vomiting Eyes: Pupils equal, round and reactive to light. ENT: Pharynx normal. Neck: Normal inspection. Neck supple. No lymph nodes noted. No crepitus CVS: Normal heart rate and rhythm. Pulses normal. Normal S1 and S2 Respiratory: No respiratory distress. Breath sounds normal. No Wheezing. No rales Abdomen: Soft, nondistended, tenderness to palpation in both lower quadrants but especially more marked over the epigastric area Skin: Skin warm and dry. Normal skin color. Normal skin turgor. Extremities: No lower extremity edema. No Lacerations. No Rash Neuro: Oriented X 3. No motor deficit. No sensory deficit. Moving all extremities. No slurred speech. CN 2 through 12 grossly intact Psych: calm, cooperative, normal affect Course Course Course Narrative: -patient receiving IV fluids, Zofran, Pepcid, IV morphine -patient's imaging pending Medical Decision Making Medical Decision Making MDM Narrative: My interpretation of labs, hematology at baseline, white blood cell count 9.0 which is elevated and patient's baseline. Chemistry shows no significant electrolyte abnormalities, glucose 131, LFTs and lipase normal -patient states that he sees Gastroenterology. Reviewing patient's previous imaging, seems that patient has had abdominal MRIs, pelvic MRIs, ultrasounds since at least 2021. Abdominal MRI from 2021 showed no evidence of active inflammatory bowel changes . Abdominal ultrasound of December of 2022 showed a questionable small 2 mm gallbladder wall polyp otherwise unremarkable. Enterography CT scan in February of 2023 did not show any stone CT scan pending -sign-out given to my colleague Dr. Rodriguez 10/30/2023 Dr. Shaggy Rodriguez's notes: 07:41 I assumed care of this patient from my colleague, Dr. Chavarria at 07:00 hours. I did interview and examine the patient. Patient states this pain is different than his gastritis/duodenitis pain. Patient points to his right lower quadrant when asked to localize his at this time. Physical examination revealed referred pain to the right with palpation of the left lower quadrant, moderate to severe right lower quadrant tenderness, no rebound, no voluntary or involuntary guarding. Patient was treated with morphine 4 mg IV, Pepcid 25 mg IV and Zofran 4 mg IV. He also received normal saline x1 L. My interpretation patient's laboratory evaluation is as follows: WBC was normal 9000. H&H and platelet counts were normal. Glucose elevated 131. LFTs normal. Lipase was normal CT scan of the abdomen pelvis is pending. Patient's presentation and exam is concerning for acute appendicitis. Patient states that his pain was greater than 10 of 10 in his now 8.5/10 after receiving morphine 4 mg IV. The patient was ordered to get Dilaudid 1 mg IV, Benadryl 25 mg IV and lactated Ringer's at 125 cc/hours 10:[address] scan of the patient's abdomen pelvis IV contrast is consistent with acute appendicitis with appendicolith. I did discuss the patient's presentation with our covering general surgeon, Dr. Johnson and he did evaluate the patient in the emergency department. Patient will be admitted to his service for further management. Patient states that his pain did improve with the IV Dilaudid but it is pain is still 5/10 therefore he was given a 2nd dose of Dilaudid 1 mg IV. Patient was also given Zosyn 4.5 g IV. 10:31 Patient's EKG revealed a normal sinus rhythm with inverted T-waves in lead 3 and AVF. Given his clinical presentation I do not think that these inverted T-waves are present ischemia. Differential Diagnosis Differential Diagnoses: The differential diagnosis associated with the presentation includes (Gastritis, peptic ulcer, SBO, perforated ulcer) Admission/Observation Consideration of admission/observation: Escalation of care including admission/observation considered (Given the patient's presentation, observation was considered) Consult Healthcare Provider Management of the patient was discussed with: Hearing Impaired Itinerant Teacher (General surgeon, Dr. Johnson) Lab Data MDM Lab Attestation statement: I reviewed the patient's lab results. 10/30/23 04:56 10/30/23 04:56 Labs: Lab Results 10/30/23 10/30/23 Range/Units 04:56 05:59 WBC 9.0 (4.8-10.8) X10*3/uL RBC 5.87 H (4.60-5.80) X10*6/uL Hgb 15.8 (14.0-18.0) g/dl Hct 47.1 (42.0-52.0) % MCV 80.2 (80.0-98.0) fL MCH 26.9 L (27.0-33.0) pg MCHC 33.5 (31.0-36.0) g/dl RDW 12.3 (11.0-16.0) % Plt Count 205 (160-400) X10*3/uL MPV 9.8 (9.4-12.4) fL Immature Gran % (Auto) 0.2 (0.0-0.4) % Neut % (Auto) 65.8 (45-73) % Lymph % (Auto) 25.9 (20-40) % [place] % (Auto) 6.7 (2-11) % Eos % (Auto) 0.7 (0-4) % Baso % (Auto) 0.7 (0-2) % Lymph # (Auto) 2.3 (1.2-4.9) X10*3/uL [place] # (Auto) 0.6 (0.1-1.2) X10*3/uL Eos # (Auto) 0.1 (0.0-0.4) X10*3/uL Baso # (Auto) 0.1 (0.0-0.2) X10*3/uL Abs Immat Gran (auto) 0.02 (0.00-0.03) X10*3/uL Absolute Neuts (auto) 6.0 (2.0-8.3) x10*3/uL Absolute Nucleated RBC 0.000 (0.0-0.012) X10*3/uL Nucleated RBC % (auto) 0.0 (0.0-0.2) /100WBC Sodium 141 (135-145) mmol/L Potassium 3.4 (3.3-5.1) mmol/L Chloride 105 (96-108) mmol/L Carbon Dioxide 25 (22-29) mmol/L Anion Gap 14 (12-20) BUN 13 (9-16) mg/dL Creatinine 1.25 (0.5-1.4) mg/dL Estim Creat Clear Calc 88.7 Estimated GFR > 60 Random Glucose 131 H (60-115) mg/dL Calcium 10.0 (8.4-10.2) mg/dL Total Bilirubin 0.3 (0.0-1.0) mg/dL AST 30 (5-37) U/L ALT 22 (0-40) U/L Alkaline Phosphatase 60 (39-117) U/L Total Protein 7.5 (6.5-8.0) g/dL Albumin 4.5 (3.5-5.0) g/dL Lipase 25 (8-78) U/L Gastric Occult Blood POSITIVE (NEG) Independent Interpretation I performed an independent interpretation of an: EKG Interpretation: My independent interpretation patient's 12 EKG done at 10:19 hours is as follows: Normal sinus rhythm with a rate of 84, normal RI interval, QRS duration and QTC interval, no ST segment elevation, no ST segment depression, inverted T-waves in lead 3 and AVF. No PACs, no PVCs. There was no old EKG for comparison. Radiology Impression Discussion of test interpretation with radiology: I have reviewed the radiologist's reading. Radiologist Impression: EXAMINATION: CT ABDOMEN AND PELVIS WITH CONTRAST CLINICAL INFORMATION: Epigastric pain. COMPARISON: CT enterography 02/16/2023. GASTROINTESTINAL TRACT: Dilated appendix measuring up to 1.1 cm in diameter with a 0.9 cm appendicolith in the distal portion and a 1.1 cm appendicolith near the base of the appendix (coronal images 32 and 31, series 7). Mild periappendiceal fat stranding. No evidence of free air. No evidence of organized extraluminal collection. Mild dilatation of the distal ileum is most likely related with reactive ileus in the context of appendicitis. No pericolonic fat stranding or free fluid. IMPRESSION: Findings are most consistent with acute uncomplicated appendicitis. Dictated By: Anette Lackey Medications Administered Generic Name Dose Route Start Last Admin Trade Name Freq PRN Reason Stop Dose Admin Lactated Ringer's 1,000 mls @ 125 mls/hr 10/30/23 07:45 10/30/23 10:41 Lr IVCONT 0 mls/hr .Q8H MONTY Infusion Discontinued Medications Generic Name Dose Route Start Last Admin Trade Name Freq PRN Reason Stop Dose Admin Diphenhydramine HCl 25 mg 10/30/23 07:37 10/30/23 07:55 Diphenhydramine Hcl 50 Mg/Ml Vial IVPUSH 10/30/23 07:38 25 mg ONCE ONE Administration Famotidine 20 mg 10/30/23 05:54 10/30/23 06:15 Famotidine/Pf 20 Mg/2 Ml Vial IVPUSH 10/30/23 05:55 20 mg ONCE ONE Administration Hydromorphone HCl 1 mg 10/30/23 07:37 10/30/23 07:55 Hydromorphone Hcl 1 Mg/Ml Syringe IVPUSH 10/30/23 07:38 1 mg ONCE STA Administration Protocol Hydromorphone HCl 1 mg 10/30/23 10:04 10/30/23 10:40 Hydromorphone Hcl 1 Mg/Ml Syringe IVPUSH 10/30/23 10:05 1 mg ONCE STA Administration Protocol Sodium Chloride 1,000 mls @ 999 mls/hr 10/30/23 05:52 10/30/23 07:58 Ns IVCONT 10/30/23 06:52 Infused .Q1H1M ONE Infusion Piperacillin Sod/Tazobactam 100 mls @ 200 mls/hr 10/30/23 10:08 10/30/23 10:40 Sod 4.5 gm/ Sodium Chloride IV 10/30/23 10:37 200 mls/hr ONCE ONE Administration Iohexol 85 ml 10/30/23 06:28 10/30/23 06:29 Iohexol 350 Mg/Ml 100 Ml Infus..Btl IV 10/30/23 06:29 85 ml ONCE ONE Administration Morphine Sulfate 4 mg 10/30/23 05:52 10/30/23 06:13 Morphine Sulfate 4 Mg/Ml Cartridge IVPUSH 10/30/23 05:53 4 mg ONCE ONE Administration Protocol Ondansetron HCl 4 mg 10/30/23 05:52 10/30/23 06:12 Ondansetron Hcl 4 Mg/2 Ml Vial IVPUSH 10/30/23 05:53 4 mg ONCE ONE Administration Critical Care Time Critical Care Time Critical Care Time: Yes Total Critical Care Time: 30 Attestation: I have personally provided critical care time. Time includes review of lab data, radiology results, discussion with consultants, and monitoring for potential decompensation. Intervention performed as documented. Discharge Plan Discharge Clinical Impression: Acute appendicitis, Abdominal pain, Nausea & vomiting Patient Disposition: Admitted As Inpatient Discharge Date/Time: 10/30/23 10:49
[2023-10-30 06:05] LABS: GASOB Int Neg Ctl Valid YES; GASOB Int Pos Ctl Valid YES; Occult Blood Gastric POSITIVE (NEG)
--- NOTE | 2023-10-30 06:06 | PC.NURSE ---
this RN attempted placement of IV in left AC while placing IV patient flexed his arm and this RN was unable to continue to advance IV. pt then began to direct this RN on where and how to place IV. 2nd attempt in right AC and patient did the same thing. he flexed arm upwards as this RN had needle in the vein. he stated he needed to see it to make sure i was in the right spot. again unable to advance the IV so it was removed. pt then began to tell this RN the appropriate places for IV placement. this RN then left the room and informed charge poster of the above. she was able to get in an IV without incident.
[2023-10-30] MEDS: 0.9 % Sodium Chloride 1,000 ML 999 ML IVCONT (06:12)
[2023-10-30] MEDS: ondansetron HCL 4 MG/2 ML VIAL IVPUSH (06:12)
[2023-10-30] MEDS: Morphine Sulfate 4 MG/ML CARTRIDGE IVPUSH (06:13)
[2023-10-30] MEDS: Famotidine/PF 20 MG/2 ML VIAL IVPUSH (06:15)
[2023-10-30] MEDS: iohexoL 350 MG/ML 100 ML INFUS..BTL 85 ML IV (06:29)
[2023-10-30] MEDS: HYDROmorphone HCl 1 MG/ML SYRINGE IVPUSH ×2 (07:55→10:40)
[2023-10-30] MEDS: diphenhydrAMINE HCL 50 MG/ML VIAL 25 MG IVPUSH (07:55)
[2023-10-30] MEDS: Lactated Ringers 1,000 ML 125 ML IVCONT (07:56)
--- NOTE | 2023-10-30 08:13 | PC.NURSE ---
Pt A+Ox3, vss and up to date. Pt stating 01/24 RLQ abdominal pain. Medicated per JUL. Pt resting in bed quietly, call cheema within reach. Warm blankets and pillow given to pt upon request. Awaiting CT results at this time. All other needs met.
--- NOTE | 2023-10-30 10:09 | ECG_ITS ---
Test Reason : PRE OP Blood Pressure : / mmHG Vent. Rate : 084 BPM Atrial Rate : 084 BPM P-R Int : 164 ms QRS Dur : 084 ms QT Int : 336 ms P-R-T Axes : 056 064 -29 degrees QTc Int : 397 ms Normal sinus rhythm Nonspecific ST and T wave abnormality inferior leads Abnormal ECG No previous ECGs available Referred By: Shaggy Rodriguez Electronically Signed By:RADHA ZAMUDIO
--- NOTE | 2023-10-30 10:14 | PM.HPGS ---
History of Present Illness History of Present Illness Date of Service: 11/02/23 Chief complaint: acute appendicitis Narrative: Lis Flores is a 43 year old male who started to have abdominal pain at 2:30 a.m. earlier. He says this was mostly at the periumbilcal and epigastric area but has since migrated to the [facility]. He describes multiple episodes of vomitting as well. He denies diarrhea. He denies any fever. He says he had GI issues with epigastric pain in the past and was being followed by GI for duodenitis/gastritis. He had capsule endoscopy then which was unremarkable he says. Review of Systems Constitutional: Constitutional: Denies chills and Denies fever(s) Cardiovascular: Cardiovascular: Denies chest pain, Denies dyspnea and Denies dyspnea on exertion Respiratory: Respiratory: Denies cough, Denies dyspnea and Denies dyspnea on exertion Gastrointestinal: Gastrointestinal: Denies hematochezia and Denies change in bowel habits Genitourinary: Genitourinary: Denies hematuria and Denies difficulty urinating Musculoskeletal: Musculoskeletal: Denies back pain and Denies limited range of motion Neurologic: Denies focal weakness and Denies convulsions Psychiatric: Psychiatric: Denies depression and Denies mood swings PMFSH Past Medical History Medical History Gastritis and duodenitis Surgical History Surgical History Hx of colonoscopy History of esophagogastroduodenoscopy (EGD) Social History Social History Household Members: None Housing: Apartment Are you a primary healthcare technician to a significant other at home: No Do you presently have visiting nurse or other home services: No Patient Tobacco Use Status: Never used Tobacco e-Cigarette/Vaping Use: Never Used Current occupational status: employed 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[employer] Allergies Allergy/AdvReac Type Severity Reaction Status Date / Time No Known Allergies Allergy Verified 10/30/23 04:51 Active Medications: Current Medications Lactated Ringer's (Lr) 1,000 mls @ 125 mls/hr IVCONT .Q8H MONTY Last Admin: 10/30/23 07:56 Dose: 125 mls/hr Piperacillin Sod/Tazobactam (Sod 4.5 gm/ Sodium Chloride) 100 mls @ 200 mls/hr IV ONCE ONE Stop: 10/30/23 10:37 Physical Exam Vital Signs: Vital Signs: Last Vital Signs Temp 98.2 F 10/30/23 04:48 Pulse 81 10/30/23 07:58 Resp 18 10/30/23 07:58 BP 148/76 H 10/30/23 07:58 Pulse Ox 100 10/30/23 07:58 O2 Del Method Room Air 10/30/23 07:58 BMI result Body Mass Index 27.9 Const: General: comfortable and no acute distress Orientation/consciousness: patient oriented x3 Neck: Neck: Yes no lymphadenopathy Resp: Auscultation: clear to auscultation bilaterally Cardio: Rhythm: regular rhythm GI: Other: tender on the RLQ, no rebound Palpation (GI): Soft to palpation, Tenderness to palpation present (GI) and no guarding Neuro: General: patient oriented x3 Results Results Labs: Short CBC 10/30/23 Range/Units 04:56 WBC 9.0 (4.8-10.8) X10*3/uL Hgb 15.8 (14.0-18.0) g/dl Hct 47.1 (42.0-52.0) % Plt Count 205 (160-400) X10*3/uL BMP 10/30/23 04:56 Sodium 141 Potassium 3.4 Chloride 105 Carbon Dioxide 25 BUN 13 Creatinine 1.25 Calcium 10.0 Liver Function 10/30/23 Range/Units 04:56 Total Bilirubin 0.3 (0.0-1.0) mg/dL AST 30 (5-37) U/L ALT 22 (0-40) U/L Alkaline Phosphatase 60 (39-117) U/L Albumin 4.5 (3.5-5.0) g/dL Abdomen CT scan report/results: report reviewed and image reviewed CT scan - pelvis: report reviewed and image reviewed Additional studies: Laboratory Results WBC 9.0 X10*3/uL (4.8-10.8) 10/30/23 04:56 RBC 5.87 X10*6/uL (4.60-5.80) H 10/30/23 04:56 Hgb 15.8 g/dl (14.0-18.0) 10/30/23 04:56 Hct 47.1 % (42.0-52.0) 10/30/23 04:56 MCV 80.2 fL (80.0-98.0) 10/30/23 04:56 MCH 26.9 pg (27.0-33.0) L 10/30/23 04:56 MCHC 33.5 g/dl (31.0-36.0) 10/30/23 04:56 RDW 12.3 % (11.0-16.0) 10/30/23 04:56 Plt Count 205 X10*3/uL (160-400) 10/30/23 04:56 MPV 9.8 fL (9.4-12.4) 10/30/23 04:56 Immature Gran % (Auto) 0.2 % (0.0-0.4) 10/30/23 04:56 Neut % (Auto) 65.8 % (45-73) 10/30/23 04:56 Lymph % (Auto) 25.9 % (20-40) 10/30/23 04:56 [place] % (Auto) 6.7 % (2-11) 10/30/23 04:56 Eos % (Auto) 0.7 % (0-4) 10/30/23 04:56 Baso % (Auto) 0.7 % (0-2) 10/30/23 04:56 Lymph # (Auto) 2.3 X10*3/uL (1.2-4.9) 10/30/23 04:56 [place] # (Auto) 0.6 X10*3/uL (0.1-1.2) 10/30/23 04:56 Eos # (Auto) 0.1 X10*3/uL (0.0-0.4) 10/30/23 04:56 Baso # (Auto) 0.1 X10*3/uL (0.0-0.2) 10/30/23 04:56 Abs Immat Gran (auto) 0.02 X10*3/uL (0.00-0.03) 10/30/23 04:56 Absolute Neuts (auto) 6.0 x10*3/uL (2.0-8.3) 10/30/23 04:56 Absolute Nucleated RBC 0.000 X10*3/uL (0.0-0.012) 10/30/23 04:56 Nucleated RBC % (auto) 0.0 /100WBC (0.0-0.2) 10/30/23 04:56 Sodium 141 mmol/L (135-145) 10/30/23 04:56 Potassium 3.4 mmol/L (3.3-5.1) 10/30/23 04:56 Chloride 105 mmol/L (96-108) 10/30/23 04:56 Carbon Dioxide 25 mmol/L (22-29) 10/30/23 04:56 Anion Gap 14 (12-20) 10/30/23 04:56 BUN 13 mg/dL (9-16) 10/30/23 04:56 Creatinine 1.25 mg/dL (0.5-1.4) 10/30/23 04:56 Estim Creat Clear Calc 88.7 10/30/23 04:56 Estimated GFR > 60 10/30/23 04:56 Random Glucose 131 mg/dL (60-115) H 10/30/23 04:56 Calcium 10.0 mg/dL (8.4-10.2) 10/30/23 04:56 Total Bilirubin 0.3 mg/dL (0.0-1.0) 10/30/23 04:56 AST 30 U/L (5-37) 10/30/23 04:56 ALT 22 U/L (0-40) 10/30/23 04:56 Alkaline Phosphatase 60 U/L (39-117) 10/30/23 04:56 Total Protein 7.5 g/dL (6.5-8.0) 10/30/23 04:56 Albumin 4.5 g/dL (3.5-5.0) 10/30/23 04:56 Lipase 25 U/L (8-78) 10/30/23 04:56 Gastric Occult Blood POSITIVE (NEG) 10/30/23 05:59 Impressions Abdomen/Pelvis CT 10/30/23 06:29 IMPRESSION: Findings are most consistent with acute uncomplicated appendicitis. Assessment and Plan (1) Acute appendicitis: Status: Acute He has right lower quadrant pain and tenderness and his CT shows mild periappendiceal stranding, a dilated appendix with appendicoliths c/w acute appendicitis. I had a long discussion with him about the technique of laparoscopic appendectomy and possible open appendectomy. I explained the risks including but not limited to bleeding, infections, bowel injury, injury to the urinary tract and other organs, staple line leak, abscess formation, as well as the benefits and alternatives. He is aware of nonoperative treatment with IV abx, but this is unlikely to achieve resolution in view of the presence of appendicoliths. He wants to proceed with laparoscopic appendectomy. Quality Stroke Does the patient have a stroke diagnosis?: No VTE Prior VTE?: No VTE Risk Level:: Medical - low VTE Device Contraindication: N/A - Device Ordered VTE Drug Contraindication: N/A - Med Ordered Procedures Date of Service Date of Service: 11/02/23
[2023-10-30] MEDS: Piperacillin Sodium/Tazobactam 4.5 GM in 0.9 % Sodium Chloride 100 ML IV (10:40)
--- NOTE | 2023-10-30 10:50 | PC.NURSE ---
Report given to OR, pt transferred at this time.
--- NOTE | 2023-10-30 10:53 | P.CONAN_ITS ---
[facility] Active Problems Active Problems: All Active Problems Acute appendicitis (Acute) Nausea & vomiting (Acute) Abdominal pain (Acute) Elevated LDL cholesterol level (Acute) Screening for prostate cancer (Acute) Adult general medical exam (Acute) Left foot pain (Acute) Foot pain (Acute) RUQ pain (Acute) Due for screening (Acute) Enteritis (Acute) Sore throat (viral) (Acute) Past Medical History Medical History Gastritis and duodenitis Functional capacity: independent ambulation Family History Family history of problems with anesthesia: No Surgical History Surgical History Hx of colonoscopy History of esophagogastroduodenoscopy (EGD) History of Problems with Anesthesia: No Social History Social History Are you a primary physician locums urgent care to a significant other at home: No Do you presently have visiting nurse or other home services: No Patient Tobacco Use Status: Never used Tobacco e-Cigarette/Vaping Use: Never Used Advance Directives: No Advance Directives Information Provided: Yes Do you have a plan to hurt others: No Plan Nutrition Risks: No Nutritional Risk Current occupational status: employed 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[employer] 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 Allergy/AdvReac Type Severity Reaction Status Date / Time No Known Allergies Allergy Verified 10/30/23 04:51 Active Medications: Current Medications Lactated Ringer's (Lr) 1,000 mls @ 125 mls/hr IVCONT .Q8H [facility] Last Infusion: 10/30/23 10:41 Dose: 0 mls/hr Sodium Chloride (Ns) 1,000 mls @ 100 mls/hr IVCONT .Q10H MONTY Morphine Sulfate (Morphine Sulfate 4 Mg/Ml Cartridge) 3 mg IVPUSH Q3H PRN; Protocol PRN Reason: Pain, Severe (Pain Scale 7-10) Ondansetron HCl (Ondansetron Hcl 4 Mg/2 Ml Vial) 4 mg IVPUSH Q8H PRN PRN Reason: Nausea and Vomiting Oxycodone HCl (Oxycodone Hcl Immed Release 5 Mg Tablet) 10 mg PO Q4H PRN PRN Reason: Pain, Moderate(Pain Scale 4-6) Sodium Chloride (0.9 % Sodium Chloride Flush 3 Ml Syringe) 3 ml IVFLUSH QSHIFT MONTY Exam Height,Weight and Vital Signs: Height 5 ft 11 in Weight 90.718 kg Last Vital Signs Temp 98.2 F 10/30/23 04:48 Pulse 81 10/30/23 07:58 Resp 18 10/30/23 10:40 BP 148/76 H 10/30/23 07:58 Pulse Ox 100 10/30/23 07:58 O2 Del Method Room Air 10/30/23 07:58 Pertinent Lab Results Pertinent Lab Results: Laboratory Tests 10/30/23 10/30/23 04:56 05:59 WBC 9.0 RBC 5.87 H Hgb 15.8 Hct 47.1 MCV 80.2 MCH 26.9 L MCHC 33.5 RDW 12.3 Plt Count 205 MPV 9.8 Immature Gran % (Auto) 0.2 Neut % (Auto) 65.8 Lymph % (Auto) 25.9 [place] % (Auto) 6.7 Eos % (Auto) 0.7 Baso % (Auto) 0.7 Lymph # (Auto) 2.3 [place] # (Auto) 0.6 Eos # (Auto) 0.1 Baso # (Auto) 0.1 Abs Immat Gran (auto) 0.02 Absolute Neuts (auto) 6.0 Absolute Nucleated RBC 0.000 Nucleated RBC % (auto) 0.0 Sodium 141 Potassium 3.4 Chloride 105 Carbon Dioxide 25 Anion Gap 14 BUN 13 Creatinine 1.25 Estim Creat Clear Calc 88.7 Estimated GFR > 60 Random Glucose 131 H Calcium 10.0 Total Bilirubin 0.3 AST 30 ALT 22 Alkaline Phosphatase 60 Total Protein 7.5 Albumin 4.5 Lipase 25 Gastric Occult Blood POSITIVE Airway Mallampati Class: II TM Dist: >3cm Neck ROM: Full Heart: RRR Lungs: CTA Assessment and Plan Assessment Anesthesia Assessment: Anesthesia Plan Discussed Final Anesthetic Review Family History of Problems with Anesthesia: No History of Problems with Anesthesia: No ASA Class: II and Emergency Final Preanesthetic Review: Meds/Allgs Chart Reviewed, Consent Obtained/Reviewed and Anes Risks/Benef Reviewed Patient Risk: Low Procedure Risk: Low Anesthetic Plan Anesthetic Plan: GA Disposition: Standard PACU
--- NOTE | 2023-10-30 12:02 | W.PM.OPN ---
Operative Note Operative Note Date of Service: 10/30/23 Narrative: Preop diagnosis: Acute appendicitis Postop diagnosis: acute appendicitis, with inflamed, diffusely indurated and erythematous appendix Procedure: Laparoscopic appendectomy Surgeon: North Johnson MD The patient is a 43-year-old male with right lower quadrant pain and tenderness with a CT scan consistent with acute appendicitis with appendicoliths. He understood the technique of laparoscopic appendectomy. He was aware of the risks, benefits, and alternatives. He was brought to the operating room. He was placed supine under general anesthesia via endotracheal tube. A Hernandez catheter was inserted. The abdomen was prepped and draped in the usual sterile fashion. A surgical time-out was done. The patient was receiving scheduled IV antibiotics A short infraumbilical incision was made on the skin using a blade 15. This was carried down through the full-thickness of the skin subcutaneous fat down to the fascia. The fascia was incised. The peritoneum was entered. Through this incision a Law port was introduced. Pneumoperitoneum was introduced to a pressure of 15 mm Hg. From here on the rest of procedure was done under vision with the 5 mm laparoscope. With laparoscopic visualization inserted a 5 mm port in the left lower quadrant through a small stab incision. A 5 mm port was introduced a small incision in the suprapubic margin. Graspers were placed through the working ports. The patient was placed in a steep head-down and [id number] position. The gallbladder was immediately seen going down into the pelvis. This was erythematous, diffusely indurated and edematous. I was able to apply a grasper gently on the distal 3rd and this was used to retract the appendix and put it on stretch. By doing so was able to visualize the base. I created a mesenteric window at the base along the cecum. I used the [place] dissector to create a mesenteric window. I then position the Endo-KASEY 30 mm stapler across the base to this mesenteric window. This was fired to transect the appendix. I then proceeded to theLigaSure to divide the attached mesentery serially until the entire appendix was completely . The appendix was retrieved through an endobag through the umbilical incision. I reinserted all ports and re-insufflated. I visualized the staple line and this appeared to intact. There was note of good hemostasis. I observed all 4 quadrants laparoscopically. There was no evidence of any bowel injury or any other pathology I pulled the omentum down to the area of dissection I desufflated the port sites. I then removed all ports under vision with the laparoscope. The umbilical port was removed last . The fascia of the umbilical incision was closed with a [id number] Polysorb 0 stitch. Skin closure was achieved on all incisions using Polysorb 4-0 subcuticular running sutures. All incisions were infiltrated with Marcaine 0.5% for postop analgesia. Dressings were applied to the procedure was then completed. The patient tolerated the procedure well. There were no immediate complications. Initial and final counts of sponges and instruments were correct. Estimated blood loss about 50 cc The patient was extubated without difficulty and transferred to the recovery room with stable vital signs.
[2023-10-30] MEDS: 0.9 % Sodium Chloride 1,000 ML 100 ML IVCONT (13:01)
--- NOTE | 2023-10-30 15:34 | PM.EVENT ---
Event Note Date of Service: 10/30/23 Event Note: Seen postop Explained findings He says he feels much better Was able to eat already Stable vital signs Abdomen soft Clinically looks well Says he may be ready to be discharged this afternoon Explained to him discharge instructions DC papers done Follow-up instructions also given to patient Time Spent With Patient Time: Total time managing care of this patient today ____ minutes.
--- NOTE | 2023-10-30 15:53 | MHC.CM.PN ---
pt sent home self care
--- NOTE | 2023-10-30 16:21 | PC.NURSE ---
Pt ambulated to BR and voided without difficulty. Bandaid dressings to abdomen with scant staining. Pt continues to deny pain at this time
--- NOTE | 2023-11-02 15:45 | PM.DS ---
DS: Providers Provider Date of Service: 10/30/23 Date of admission: 10/30/23 10:23 Primary care physician: Concepcion Park NP DS: Diagnosis Discharge Diagnosis (1) Acute appendicitis: Status: Acute DS: Summary Hospital Course Hospital Course: 43-year-old male 43-year-old male admitted on 10/30/2023 because of right lower quadrant pain. His CAT scan shows findings consistent with acute appendicitis. He underwent laparoscopic appendectomy that same day. He tolerated the procedure well. He was restarted on diet which he tolerated. He had good pain control. He had stable vital signs postoperatively and felt well. He was therefore discharged home later that day. Time Attestation Discharge Coordination Time (in mins): 30 min Quality: Safe Use of Opioids Does Pt have an Active Cancer Diagnosis on the Problem List?: No Quality: Stroke Does the patient have a stroke diagnosis?: No Physical Exam Vital Signs: Vital Signs: Last Vital Signs Temp 96.9 F 10/30/23 13:11 Pulse 88 10/30/23 13:11 Resp 16 10/30/23 13:11 BP 130/70 10/30/23 13:11 Pulse Ox 97 10/30/23 13:11 O2 Del Method Room Air 10/30/23 13:11 BMI result Body Mass Index 27.9 Const: General: comfortable and no acute distress Orientation/consciousness: patient oriented x3 Neck: Neck: Yes no lymphadenopathy Resp: Auscultation: clear to auscultation bilaterally Cardio: Rhythm: regular rhythm GI: Other: Dressings dry Palpation (GI): Soft to palpation, Tenderness to palpation present (GI) (Appropriate tenderness on incisions) and no guarding Neuro: General: patient oriented x3 DS: Data Data Completed and Pending Completed studies during hospitalization [Text1]: Pending at discharge 10/30/23 11:52 Surgical [PTH] Routine Labs on day of discharge: Laboratory Results WBC 9.0 X10*3/uL (4.8-10.8) 10/30/23 04:56 RBC 5.87 X10*6/uL (4.60-5.80) H 10/30/23 04:56 Hgb 15.8 g/dl (14.0-18.0) 10/30/23 04:56 Hct 47.1 % (42.0-52.0) 10/30/23 04:56 MCV 80.2 fL (80.0-98.0) 10/30/23 04:56 MCH 26.9 pg (27.0-33.0) L 10/30/23 04:56 MCHC 33.5 g/dl (31.0-36.0) 10/30/23 04:56 RDW 12.3 % (11.0-16.0) 10/30/23 04:56 Plt Count 205 X10*3/uL (160-400) 10/30/23 04:56 MPV 9.8 fL (9.4-12.4) 10/30/23 04:56 Immature Gran % (Auto) 0.2 % (0.0-0.4) 10/30/23 04:56 Neut % (Auto) 65.8 % (45-73) 10/30/23 04:56 Lymph % (Auto) 25.9 % (20-40) 10/30/23 04:56 [place]itt % (Auto) 6.7 % (2-11) 10/30/23 04:56 Eos % (Auto) 0.7 % (0-4) 10/30/23 04:56 Baso % (Auto) 0.7 % (0-2) 10/30/23 04:56 Lymph # (Auto) 2.3 X10*3/uL (1.2-4.9) 10/30/23 04:56 [place]itt # (Auto) 0.6 X10*3/uL (0.1-1.2) 10/30/23 04:56 Eos # (Auto) 0.1 X10*3/uL (0.0-0.4) 10/30/23 04:56 Baso # (Auto) 0.1 X10*3/uL (0.0-0.2) 10/30/23 04:56 Abs Immat Gran (auto) 0.02 X10*3/uL (0.00-0.03) 10/30/23 04:56 Absolute Neuts (auto) 6.0 x10*3/uL (2.0-8.3) 10/30/23 04:56 Absolute Nucleated RBC 0.000 X10*3/uL (0.0-0.012) 10/30/23 04:56 Nucleated RBC % (auto) 0.0 /100WBC (0.0-0.2) 10/30/23 04:56 Sodium 141 mmol/L (135-145) 10/30/23 04:56 Potassium 3.4 mmol/L (3.3-5.1) 10/30/23 04:56 Chloride 105 mmol/L (96-108) 10/30/23 04:56 Carbon Dioxide 25 mmol/L (22-29) 10/30/23 04:56 Anion Gap 14 (12-20) 10/30/23 04:56 BUN 13 mg/dL (9-16) 10/30/23 04:56 Creatinine 1.25 mg/dL (0.5-1.4) 10/30/23 04:56 Estim Creat Clear Calc 88.7 10/30/23 04:56 Estimated GFR > 60 10/30/23 04:56 Random Glucose 131 mg/dL (60-115) H 10/30/23 04:56 Calcium 10.0 mg/dL (8.4-10.2) 10/30/23 04:56 Total Bilirubin 0.3 mg/dL (0.0-1.0) 10/30/23 04:56 AST 30 U/L (5-37) 10/30/23 04:56 ALT 22 U/L (0-40) 10/30/23 04:56 Alkaline Phosphatase 60 U/L (39-117) 10/30/23 04:56 Total Protein 7.5 g/dL (6.5-8.0) 10/30/23 04:56 Albumin 4.5 g/dL (3.5-5.0) 10/30/23 04:56 Lipase 25 U/L (8-78) 10/30/23 04:56 Gastric Occult Blood POSITIVE (NEG) 10/30/23 05:59 Impressions Abdomen/Pelvis CT 10/30/23 06:29 IMPRESSION: Findings are most consistent with acute uncomplicated appendicitis. Discharge Plan Discharge Anticipated Discharge Date/Time: 10/30/23 15:35 Patient Disposition: Home, Self-Care Discharge Diagnosis: acute appendicitis Referrals: Concepcion Park NP [Primary Care Provider] - 1 Week North Johnson MD [Physician] - 2 Weeks Discharge Medications: New oxycodone-acetaminophen [Percocet] 5-325 mg tablet 1 tab PO Q4-6H PRN (Reason: pain) Qty: 20 0RF Rx Instructions: Partial Fill upon patient request. ibuprofen 600 mg tablet 600 mg PO Q6H PRN (Reason: pain) Qty: 30 0RF Continued cholecalciferol (vitamin D3) 50 mcg (2,000 unit) capsule 50 mcg PO DAILY 90 Days Qty: 90 1RF Discharge Orders: Discharge Order (Routine); Ordered 10/30/23 Ordered By: North Johnson Diet: Advance to usual diet Activity on Discharge: No heavy lifting Stand Alone Forms: Patient Portal Discharge page Print Language: Algerian Activity Restrictions/Additional Instructions: If the incision area is tender, you may apply an ice pack for short intervals (No more than 20 minutes on, followed by at least 20 minutes off). Do not apply heat. Do not use creams, lotions, or topical antibiotics unless instructed to do so by your surgeon. These can cause infection or allergic reaction. No lifting more than 20 lbs Okay to shower Okay to change dressings with gauze or Band-Aid No strenuous activities Call the office for follow-up in 2 weeks - with Dr. Johnson Call Your Doctor If: -Your temperature exceeds 101.5? F -You experience excessive pain or swelling -You have an unexpected reaction to medication -You have excessive bleeding -You experience continued vomiting/nausea -Your incision begins to separate -Your incision shows signs of infection such as increased redness, swelling, excessive pain, drainage (light blood or clear fluid is normal) or heat Care Plan Goals: return to baseline health Health Concerns: pain control Plan of Treatment: oral pain meds Assessment: doing very well Discharge Date/Time: 10/30/23 18:59
== END 2023-10-30 18:59 | disposition home or self-care (01) | DRG 234 ==
LOC: HO.ED 10:11 → HO.EDOVER 10:49 → HO.S3 10:50
PROVIDERS: Emergency Medicine; Admitting Provider Surgery; Emergency Provider Emergency Medicine Emergency Medical Services; PCP Nurse Practitioner Family; Visit Provider Surgery
PROC: 0DTJ4ZZ Resection of Appendix, Percutaneous Endoscopic Approach (ICD-10-PCS; CPT 44970; principal; 2023-10-30 11:00)
DX: K35.80 Unspecified acute appendicitis (principal); K38.1 Appendicular concretions
CPT/HCPCS: 36415; 74177; 80053; 82271; 83690; 85025; 88304; 93005; 99285; J1100; J1170; J1200; J1885; J2250; J2270; J2405; J2543; J2704; J2795; J3010; J7120; Q9967

== ENCOUNTER → 2023-10-30 10:09 | Outpatient (BNV) | payer OTHER, SELFPAY | PROVIDERS: Admitting Provider Surgery; Emergency Provider Emergency Medicine Emergency Medical Services; PCP Nurse Practitioner Family; Visit Provider Internal Medicine | DX: R94.31 Abnormal electrocardiogram [ECG] [EKG] (principal) | CPT/HCPCS: 93010 ==

== ENCOUNTER → 2023-10-30 10:23 | Outpatient (BNV) | payer OTHER, SELFPAY | PROVIDERS: Admitting Provider Surgery; Emergency Provider Emergency Medicine Emergency Medical Services; PCP Nurse Practitioner Family; Visit Provider Surgery | DX: K35.80 Unspecified acute appendicitis (principal) | CPT/HCPCS: 44970; 99235; 99499 ==

== ENCOUNTER 2023-11-08 12:10 | Outpatient (REF) | payer OTHER, SELFPAY ==
[2023-11-08 14:42] LABS: MANUAL DIFF FLAG NO
[2023-11-08 14:43] LABS: Basophils Absolute Auto 0.1 X10*3/uL (0.0-0.2); Basophils Percent Auto 1.1 % (0-2); Eosinophils Absolute Auto 0.1 X10*3/uL (0.0-0.4); Eosinophils Percent Auto 0.9 % (0-4); Hematocrit 47.2 % (42.0-52.0); Hemoglobin 15.6 g/dl (14.0-18.0); Imm Gran Abs Auto 0.02 X10*3/uL (0.00-0.03); Imm Gran Pct Auto 0.3 % (0.0-0.4); Lymphocytes Absolute Auto 2.9 X10*3/uL (1.2-4.9); Lymphocytes Percent Auto 44.5 % (20-40); Mean Corpuscular HGB Conc 33.1 g/dl (31.0-36.0); Mean Corpuscular Hemoglobin 26.9 pg (27.0-33.0); Mean Corpuscular Volume 81.5 fL (80.0-98.0); Mean Platelet Volume 11.1 fL (9.4-12.4); Monocytes Absolute Auto 0.7 X10*3/uL (0.1-1.2); Monocytes Percent Auto 10.9 % (2-11); Neutrophils Absolute Auto 2.7 x10*3/uL (2.0-8.3); Neutrophils Percent Auto 42.3 % (45-73); Platelet Count 248 X10*3/uL (160-400); Red Blood Count 5.79 X10*6/uL (4.60-5.80); Red Cell Distribution Width 12.4 % (11.0-16.0); White Blood Count 6.4 X10*3/uL (4.8-10.8)
[2023-11-08 15:01] LABS: Anion Gap 12 (12-20); Blood Urea Nitrogen 17 mg/dL (9-16); Calcium 10.6 mg/dL (8.4-10.2); Carbon Dioxide 27 mmol/L (22-29); Chloride 106 mmol/L (96-108); Estimated Glomerular Filt Rate > 60; Glucose Random 91 mg/dL (60-115); Sodium 141 mmol/L (135-145)
[2023-11-08 15:25] LABS: TSH reflex Free T4 2.23 uIU/mL (0.32-4.0); Vitamin D 25-OH Total 36.4 ng/mL (>30)
== END 2023-11-08 12:11 | disposition home or self-care (01) ==
LOC: HO.WFDLDS 12:10
PROVIDERS: Visit Provider Family Medicine
DX: Z00.00 Encounter for general adult medical examination without abnormal findings (principal); R53.83 Other fatigue; E55.9 Vitamin D deficiency, unspecified
CPT/HCPCS: 36415; 80048; 82306; 84443; 85025

== ENCOUNTER 2023-11-15 08:42 | Outpatient (AMB) | payer OTHER, SELFPAY ==
--- NOTE | 2023-11-15 08:43 | A.OFFVIS_ITS ---
Intake Visit Reasons: s/p appendectomy Intake Note: This patient presents for a post-op assessment status post laparoscopic appendectomy. Patient c/o; reports no complaints pertaining to surgery. Surgery date: 10/30/2023 Laparoscopic appendectomy Waste Management Recycling Technician Required: No Accompanied by: Self / Same As Patient Allergies No Known Allergies Allergy (Verified 11/15/23 08:47) HPI HPI s/p appendectomy: Details: 43-year-old male here for postop visit. He had undergone laparoscopic appendectomy for acute appendicitis has 10/30/2023. He tolerated procedure well and was discharged on the same day. He says he feels well and denies any significant complaints. He has good oral intake and good bowel movements. 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 Review of Systems Const Denies chills and Denies fever(s) Card Denies chest pain, Denies dyspnea and Denies dyspnea on exertion Resp Denies cough, Denies dyspnea and Denies dyspnea on exertion GI Denies hematochezia and Denies change in bowel habits Denies hematuria and Denies difficulty urinating Musc Denies back pain and Denies limited range of motion Neuro Denies focal weakness and Denies convulsions Psych Denies depression and Denies mood swings Physical Exam Const General: comfortable and no acute distress Resp Effort & Inspection: normal respiratory effort GI Other: All incisions are well healed and not infected Palpation (GI): Soft to palpation Assessment & Plan Assessment & Plan (1) Acute appendicitis: Code(s): K35.80 - Unspecified acute appendicitis Category: Medical Plan: Status post laparoscopic appendectomy. He is doing very well. All incisions are well healed. Her path report shows acute suppurative appendicitis. I advised him to avoid lifting anything more than 20 lb for at least 2 more weeks and he can slowly ramp up his level of activities. He can otherwise follow up on a p.r.n. basis. Coding Level of Care Code Global (46680) Diagnoses Acute appendicitis K35.80
== END 2023-11-15 08:51 | disposition home or self-care (01) ==
PROVIDERS: PCP Nurse Practitioner Family; Visit Provider Surgery
DX: K35.80 Unspecified acute appendicitis (principal)
CPT/HCPCS: 99024

== ENCOUNTER → 2023-11-15 08:42 | Outpatient (BNVA) | payer OTHER, SELFPAY | PROVIDERS: PCP Nurse Practitioner Family; Visit Provider Surgery ==

== ENCOUNTER 2024-05-25 15:07 | Outpatient (REF) | payer OTHER, SELFPAY ==
[2024-05-25 18:15] LABS: CT PCR NOT DETECTED (Not Detect.); NG PCR NOT DETECTED (Not Detect.)
[2024-05-26 07:58] LABS: Syphilis Screen Nonreactive (Nonreactive)
[2024-05-26 09:13] LABS: HBS Num1 89.04 mIU/mL (0-7.99); HBc Num1 9.19 S/CO (0.00-0.79); HBsAGNum1 0.41 S/CO (0.00-0.99); HIV AB/AG Nonreactive (Nonreactive); HIV Num 1 0.06 S/CO (0.00-0.99); Hepatitis B Surface Antigen Negative (Negative); ~HepC Num1 0.08 S/CO (0.00-0.79); ~Hepatitis B Surface Antibody REACTIVE (Nonreactive); ~Hepatitis C Antibody Nonreactive (Nonreactive)
[2024-05-26 09:59] LABS: HBc Num2 9.23 S/CO; HBc Num3 9.19 S/CO; Hepatitis B Core Antibody Reactive (Nonreactive)
== END 2024-05-25 15:08 | disposition home or self-care (01) ==
LOC: HO.LAB 15:07
PROVIDERS: PCP Nurse Practitioner Family
DX: Z11.3 Encounter for screening for infections with a predominantly sexual mode of transmission (principal)
CPT/HCPCS: 36415; 86704; 86706; 86780; 86803; 87340; 87389; 87491; 87591

== ENCOUNTER 2024-08-15 15:18 | Outpatient (REF) | payer OTHER, SELFPAY ==
[2024-08-15 18:07] LABS: MANUAL DIFF FLAG NO
--- OUTSIDE RECORDS SUMMARY | 2024-08-15 18:09 | XMS_ITS | Encounter Summary ---
Author Organization [facility] Address [address] [place] [address] Care Team Providers Care Supervisor [place] Name Role Phone Provider, Unknown Primary Care Provider [phone] Kerri Sanchez DO Primary Care Provider [phone] Pcp, No Primary Care Provider Unavailabl e Encounter Details Date Type Department Care Team ([facility] st Contact Info) Description 05/07/2016 Scanned Document [address] [phone] Provider, Generic Social History Tobacco Use Types Packs/Day Years Used Date Smoking Tobacco: Never Alcohol Use Standard Drinks/Week Comments No 0 (1 standard drink = 0.6 oz pur e alcohol) Sex and Gender Information Value Date Recorded Sex Assigned at Not on file Gender Identity Not on file Sexual Orientation Not on file documented as of this encounter Plan of Treatment Not on file documented as of this encounter Visit Diagnoses Not on filedocumented in this encounter Care Teams Supervisor [place] Relationship Specialty Start Date End Date Provider, Unknown 1 DO NOT USE THIS RECORD PCP - General 04/06/16 06/09/16 Kerri Sanchez DO 1 DO NOT USE THIS RECORD PCP - General Family Medicine 06/10/16 04/30/22 Pcp, No PCP - General General Medicine 05/01/22 documented as of this encounter
--- OUTSIDE RECORDS SUMMARY | 2024-08-15 18:09 | XMS_ITS | Encounter Summary ---
Author Organization [facility] Address [address] [place] [address] Care Team Providers Care Senior Tax Specialist Name Role Phone Kerri Sanchez DO Primary Care Provider Pcp, No Primary Care Provider Unavailabl e Encounter Details Date Type Department Care Team ([facility] st Contact Info) Description 06/10/2016 Scanned Document [address] [phone] Provider, Generic Social History Tobacco Use Types [...] on filedocumented in this encounter Care Teams Senior Tax Specialist Relationship Specialty Start Date End Date Kerri Sanchez, PCP - General Family Medicine 06/10/16 04/30/22 Pcp, No PCP - General General Medicine 05/01/22 documented as of this encounter
--- OUTSIDE RECORDS SUMMARY | 2024-08-15 18:09 | XMS_ITS | Clinical Summary ---
Author Organization [facility] Address [address] [place] [id number] Care Team Providers Care Fender Repairer Name Role Phone Pcp, No Primary Care Provider Unavailabl e Allergies No known active allergies Medications Medication Sig Dispensed Refills Start Date End Date Status azithromycin (ZITHROMAX) 500 MG tabletIndications:Pen ile discharge,Unprotected sex Take 2 tablets x 1 now. 2 tablet 0 12/11/2015 Active rizatriptan (MAXALT) 5 MG tabletIndications:Epi sodic cluster headache, not intractable Take 1 tablet (5 mg total) by mouth once as needed for migraine. May repeat in 2 hours if unresolved. Do not exceed 30 mg in 24 hours. 9 tablet 1 04/06/2016 Active methylPREDNISolone (MEDROL DOSEPAK) 4 MG tabletIndications:Epi sodic cluster headache, not intractable follow package directions 21 tablet 3 04/06/2016 Active mefloquine (LARIAM) 250 MG tabletIndications:Nee d for malaria prophylaxis With food and with at least 8 oz of water. Take 1 tab po q week, starting 2 weeks before exposure, and continue for 4 weeks after exposure 11 tablet 0 04/24/2016 Active levothyroxine (SYNTHROID, LEVOTHROID) 75 MCG tabletIndications:Acq uired hypothyroidism Take 1 tablet (75 mcg total) by mouth every morning. 90 tablet 3 04/24/2016 Active Active Problems Problem Noted Date Diagnosed Date Acquired hypothyroidism 04/24/2016 Cluster headache, episodic 04/06/2016 Family History Medical History Relation Name Comments Hypertension Father Relation Name Status Comments Father Social History Tobacco Use Types Packs/Day Years Used Date Smoking Tobacco: Never Alcohol Use Standard Drinks/Week Comments No 0 (1 standard drink = 0.6 oz pur e alcohol) Sex and Gender Information Value Date Recorded Sex Assigned at Not on file Gender Identity Not on file Sexual Orientation Not on file Last Filed Vital Signs Vital Sign Reading Time Taken Comments Blood Pressure 127/59 06/12/2016 9:16 AM EST Pulse 77 06/12/2016 9:16 AM EST Temperature 36.2 ??C (97.2 ??F) 06/12/2016 7:46 AM ES T Respiratory Rate 16 06/12/2016 9:16 AM EST Oxygen Saturation 98% 06/12/2016 9:16 AM EST Inhaled Oxygen Concentration - - Weight 90.3 kg (199 lb) 04/24/2016 8:41 AM EST Height 177.8 cm (5' 10 ) 04/24/2016 8:41 AM EST Body Mass Index 28.55 04/24/2016 8:41 AM EST Plan of Treatment Health Maintenance Due Date Last Done Comments DTaP/Tdap/Td Vaccines (1 - Tdap) 2000 Hepatitis B Vaccines (1 of 3 - 19+ 3-dose series) 2000 Influenza Vaccine 12/16/2023 03/14/2020, , 05/29/2011, Additional history exists COVID-19 Vaccine ( season) 2024 HIV Screening Completed 12/11/2015 Hepatitis C Virus Screening Completed 12/11/2015 HPV Vaccines Aged Out No longer eligi ble based on patient's age to complete this topic Pneumococcal Vaccine: Pediatric (0-5 Years) and At-Risk Patients (6 to 49 Years) Aged Out No longer eligible based on patient's age to complete this topic Procedures Procedure Name Priority Date/Time Associated Diagnosis Comments (REPORT) RAPID HIV 1/2 AB EIA REFLEX TO CONFIRMATION Routine 12/11/2015 12:45 PM EDT Penile discharge Unprotected sex HEPATITIS C VIRUS (HCV) ANTIBODY Routine 12/11/2015 12:45 PM EDT Penile discharge Unprotected sex from Last 3 Months or Most Recently Relevant to Health Maintenance Results * Rapid HIV 1/2 Ab EIA reflex to confirmation (12/11/2015 12:45 PM EDT) HIV Ag/Ab, 4th Gen NON-REACT ERMA NON-REACT ERMA [facility] Comment: HIV-1 antigen and HIV-1/HIV-2 antibodies were not detected. There is no laboratory evidence of HIV infection. PLEASE NOTE: This information has been disclosed to you from records whose confidentiality may be protected by state law. ??If your state requires such protection, then the state law prohibits you from making any further disclosure of the information without the specific written consent of the person to whom it pertains, or as otherwise permitted by law. A general authorization for the release of medical or other information is NOT sufficient for this purpose. ?? For additional information please refer to http://education.[employer]/faq/UYJ739 (This link is being provided for informational/ educational purposes only.) The performance of this assay has not been clinically validated in patients less than 2 years old. Blood specimen (specimen) Blood specimen / Unknown 12/11/2015 12:45 PM EDT 12/11/2015 12:49 PM EDT Narrative [facility] - 12/13/2015 11:31 AM EDT FASTING:NO Resulting Agency Comment Performing Organization Information: ?Site ID: [id number] ?Name: [id number] ?Address: [address] [place] [address], [place] [address] ?Director: Ginny Goodrich MD Ernestoriana Maharaj [facility]LO[facility] ORDER[facility] [address] [place] [address], [place] [address] * Hepatitis C Virus (HCV) Antibody (12/11/2015 12:45 PM EDT) Hepatitis C Antibody NON-REACTI VE NON-REACT ERMA [facility] Hepatitis C Antibody (s/co) 0.03 <1.00 [facility] Blood specimen (specimen) Blood specimen / Unknown 12/11/2015 12:45 PM EDT 12/11/2015 12:49 PM EDT Narrative [facility] - 12/13/2015 11:31 AM EDT FASTING:NO Resulting Agency Comment Performing Organization Information: ?Site ID: [id number] ?Name: [id number] ?Address: [address] [place] [address], [place] [address] ?Director: Ginny Goodrich MD Winter Maharaj [facility]LO[facility] ORDER[facility] [address], [place] [address] from Last 3 Months or Most Recently Relevant to Health Maintenance Care Teams Fender Repairer Relationship Specialty Start Date End Date Pcp, No PCP - General General Medicine 05/01/22
[2024-08-15 19:01] LABS: Basophils Absolute Auto 0.1 X10*3/uL (0.0-0.2); Basophils Percent Auto 1.6 % (0-2); Eosinophils Absolute Auto 0.1 X10*3/uL (0.0-0.4); Eosinophils Percent Auto 1.8 % (0-4); Hematocrit 48.5 % (42.0-52.0); Hemoglobin 15.7 g/dl (14.0-18.0); Lymphocytes Absolute Auto 2.2 X10*3/uL (1.2-4.9); Lymphocytes Percent Auto 49.4 % (20-40); Mean Corpuscular HGB Conc 32.4 g/dl (31.0-36.0); Mean Corpuscular Hemoglobin 26.3 pg (27.0-33.0); Mean Corpuscular Volume 81.2 fL (80.0-98.0); Mean Platelet Volume 10.4 fL (9.4-12.4); Monocytes Absolute Auto 0.4 X10*3/uL (0.1-1.2); Monocytes Percent Auto 9.2 % (2-11); Neutrophils Absolute Auto 1.7 x10*3/uL (2.0-8.3); Platelet Count 229 X10*3/uL (160-400); Red Blood Count 5.97 X10*6/uL (4.60-5.80); Red Cell Distribution Width 12.7 % (11.0-16.0); White Blood Count 4.5 X10*3/uL (4.8-10.8)
[2024-08-15 19:20] LABS: Appearance Urine Turbid; Color Urine Yellow; Glucose Urine UA Negative (Negative); Leukocyte Esterase Urine Negative (Negative); Nitrite Urine Negative (Negative); PH 5.5 (5.0-9.0); Specific Gravity - Urine 1.025 (1.005-1.025); Urine Blood Negative (Negative); Urine Ketones Trace mg/dL (Negative); Urine Protein Negative (Neg-Trace)
[2024-08-15 19:25] LABS: Folate 6.6 ng/mL (> or = 4.0); Vitamin B12 897 pg/mL (200-900)
[2024-08-15 19:55] LABS: Alanine Aminotransferase 30 U/L (0-40); Albumin Level 4.6 g/dL (3.5-5.0); Alkaline Phosphatase 51 U/L (39-117); Anion Gap 9 (12-20); Aspartate Amino Transferase 41 U/L (5-37); Bilirubin Total 0.7 mg/dL (0.0-1.0); Blood Urea Nitrogen 14 mg/dL (9-16); C Reactive Protein < 0.04 mg/dL (< or = 0.50); Calcium 9.8 mg/dL (8.4-10.2); Carbon Dioxide 28 mmol/L (22-29); Chloride 107 mmol/L (96-108); Cholesterol 262 mg/dL (<200); Estimated Glomerular Filt Rate > 60; Glucose Random 85 mg/dL (60-115); HDL Cholesterol 46 mg/dL (>40); LDL Cholesterol Calculated 195 mg/dL (<100); Phosphorus 3.4 mg/dL (2.7-4.5); Potassium 3.8 mmol/L (3.3-5.1); Sodium 140 mmol/L (135-145); Total Protein 7.7 g/dL (6.5-8.0); Triglycerides 109 mg/dL (<150)
[2024-08-15 20:05] LABS: Vitamin D 25-OH Total 28.4 ng/mL (>30)
[2024-08-15 20:07] LABS: Ferritin 193 ng/mL (20-250)
[2024-08-16 10:59] LABS: Calcium, Ionized 5.2 mg/dL (4.7-5.5)
[2024-08-16 23:03] LABS: IgA 114 mg/dL (47-310); IgG 1447 mg/dL (600-1640); IgM 46 mg/dL (50-300)
== END 2024-08-15 15:19 | disposition home or self-care (01) ==
LOC: HO.WFDLDS 15:18
PROVIDERS: Referring Provider Internal Medicine Gastroenterology; Visit Provider Family Medicine
DX: Z00.00 Encounter for general adult medical examination without abnormal findings (principal); K52.9 Noninfective gastroenteritis and colitis, unspecified; E46 Unspecified protein-calorie malnutrition; E83.52 Hypercalcemia; K75.81 Nonalcoholic steatohepatitis (NASH); E55.9 Vitamin D deficiency, unspecified
CPT/HCPCS: 36415; 80053; 80061; 81003; 82306; 82330; 82607; 82728; 82746; 82784; 84100; 85025; 86140

== ENCOUNTER 2024-08-18 11:02 | Outpatient (REF) | payer OTHER, SELFPAY ==
--- OUTSIDE RECORDS SUMMARY | 2024-08-18 12:48 | XMS_ITS | Clinical Summary ---
Author Organization Formerly [facility] Address [address] [place] [address] Care Team Providers Care Radio Dispatcher Name Role Phone Pcp, No Primary Care [...] Ag/Ab, 4th Gen NON-REACT ERMA NON-REACT ERMA [facility] Comment: HIV-1 antigen and HIV-1/HIV-2 [...] ?? For additional information please refer to http://education.LIKECHARITY/faq/GAJ170 (This link is being provided for informational/ educational purposes only.) The performance of this assay has not been clinically validated in patients less than 2 years old. Blood specimen (specimen) Blood specimen / Unknown 12/11/2015 12:45 PM EDT 12/11/2015 12:49 PM EDT Narrative [facility] - 12/13/2015 11:31 AM EDT FASTING:NO Resulting Agency Comment Performing Organization Information: ?Site ID: [id number] ?Name: [facility] ?Address: [address] [place] [address], [place] [address] ?Director: Ginny Goodrich MD Ernestoriana Maharaj [facility] LAB BLOOD ORDERABLES [facility] [place] [address], [place] [address] * Hepatitis C Virus (HCV) [...] Performing Organization Information: ?Site ID: [id number] ?Name: [facility] ?Address: [address] [place] [address], [place] [address] ?Director: Ginny Goodrich MD Winter Maharaj [facility] LAB BLOOD ORDERABLES [facility] [address], [place] [address] from Last 3 Months or Most Recently Relevant to Health Maintenance Care Teams Radio Dispatcher Relationship Specialty Start Date End Date Pcp, No PCP - General General Medicine 05/01/22
--- OUTSIDE RECORDS SUMMARY | 2024-08-18 12:48 | XMS_ITS | Encounter Summary ---
Author Organization [facility] Address [address] [place] [address] Care Team Providers Care Director Supply Chain Name Role Phone Provider, Unknown Primary Care Provider [phone] Kerri Sanchez DO Primary Care Provider [phone] Pcp, No Primary Care Provider Unavailabl e Encounter Details Date Type Department Care Team ([facility] st Contact Info) Description 05/07/2016 Scanned Document [address] [phone] Provider, Generic Social History Tobacco Use Types [...] on filedocumented in this encounter Care Teams Director Supply Chain Relationship Specialty Start Date End Date Provider, Unknown 1 DO NOT USE THIS RECORD PCP - General 04/06/16 06/09/16 Kerri Sanchez DO 1 DO NOT USE THIS RECORD PCP - General Family Medicine 06/10/16 04/30/22 Pcp, No PCP - General General Medicine 05/01/22 documented as of this encounter
--- OUTSIDE RECORDS SUMMARY | 2024-08-18 12:48 | XMS_ITS | Encounter Summary ---
Author Organization [facility] Address [address] [place] [address] Care Team Providers Care Healthcare Economics Consultant Name Role Phone Kerri Sanchez DO Primary Care Provider [phone] Pcp, No Primary Care Provider Unavailabl e Encounter Details Date Type Department Care Team ([facility] st Contact Info) Description 06/10/2016 Scanned Document [address] [phone] Provider, Generic Social History Tobacco Use Types [...] on filedocumented in this encounter Care Teams Healthcare Economics Consultant Relationship Specialty Start Date End Date Kerri Sanchez, PCP - General Family Medicine 06/10/16 04/30/22 Pcp, No PCP - General General Medicine 05/01/22 documented as of this encounter
[2024-08-23 22:03] LABS: Lactoferrin, Fecal, Quant. <6.25 mcg/mL (<7.25)
== END 2024-08-18 11:03 | disposition home or self-care (01) ==
LOC: HO.LNP 11:02
PROVIDERS: Visit Provider Internal Medicine Gastroenterology
DX: K51.50 Left sided colitis without complications (principal); K52.9 Noninfective gastroenteritis and colitis, unspecified; E46 Unspecified protein-calorie malnutrition
CPT/HCPCS: 83631

== ENCOUNTER 2024-08-21 09:19 | Outpatient (REF) | payer OTHER, SELFPAY ==
--- NOTE | ~2024-08-21 | MR_ITS ---
EXAMINATION: MRI Abdomen without and with contrast HISTORY: K52.9 - Noninfective gastroenteritis and colitis, unspecified COMPARISON: Comparison is made with the prior examination dated 01/28/2022. Correlation is also made with a CT enterography examination performed 02/16/2023. TECHNIQUE: Axial in and out of phase T1-weighted gradient echo, and axial and coronal HASTE T2 with fat saturation images were obtained through the abdomen. Comparison a coronal T2-weighted images were also obtained. Subsequently, fat suppressed axial and coronal T1-weighted images were obtained after the intravenous administration of 8.5 mL Gadavist. The patient was given low density oral contrast material for MR arteriography. FINDINGS: The small bowel is normal in caliber. There is no abnormal wall thickening or dilatation. There is normal small bowel peristalsis. There is no abnormal small bowel enhancement. No colonic abnormality is identified. The liver, gallbladder, spleen, pancreas, adrenals, and kidneys are unremarkable. No retroperitoneal lymphadenopathy or ascites is identified. The visualized bones demonstrate normal marrow signal intensity. MR/MR abdomen wo/w con IMPRESSION: Unremarkable MR enterography examination. Electronically signed by: Rich Fofana MD 08/22/2024 07:36 AM EDT
--- OUTSIDE RECORDS SUMMARY | 2024-08-21 10:23 | XMS_ITS | Encounter Summary ---
Author Organization [facility] Address [address] [place] [address] Care Team Providers Care Lawn Sprinkler Servicer Name Role Phone Kerri Sanchez DO Primary Care Provider Pcp, No Primary Care Provider Unavailabl e Encounter Details Date Type Department Care Team ([facility] st Contact Info) Description 06/10/2016 Scanned Document [address] [phone] Provider, Generic Social History Tobacco Use Types [...] on filedocumented in this encounter Care Teams Lawn Sprinkler Servicer Relationship Specialty Start Date End Date Kerri Sanchez, PCP - General Family Medicine 06/10/16 04/30/22 Pcp, No PCP - General General Medicine 05/01/22 documented as of this encounter
--- OUTSIDE RECORDS SUMMARY | 2024-08-21 10:23 | XMS_ITS | Clinical Summary ---
Author Organization [facility] Address [address] [place] [address] Care Team Providers Care Decorator Mannequin Name Role Phone Pcp, No Primary Care [...] Ag/Ab, 4th Gen NON-REACT ERMA NON-REACT ERMA [facility] NL1 Comment: HIV-1 antigen and HIV-1/HIV-2 [...] ?? For additional information please refer to http://education.Conjure/faq/QFR906 (This link is being provided for informational/ educational purposes only.) The performance of this assay has not been clinically validated in patients less than 2 years old. Blood specimen (specimen) Blood specimen / Unknown 12/11/2015 12:45 PM EDT 12/11/2015 12:49 PM EDT Narrative [facility] - 12/13/2015 11:31 AM EDT FASTING:NO Resulting Agency Comment Performing Organization Information: ?Site ID: [id number] ?Name: [facility] ?Address: [address] [place] [address], [place] [address] ?Director: Ginny Goodrich MD Ernestoriana Maharaj LYNSE[facility] LAB BLOOD ORDERABLES [facility] [address] [place] [address], [place] [address] * Hepatitis C Virus (HCV) [...] Performing Organization Information: ?Site ID: [id number] ?Name: [facility] ?Address: [address] [place] [address], [place] [address] ?Director: Ginny Goodrich MD Winter Maharaj LYN[facility] LAB BLOOD ORDERABLES [facility] [address], [place] [address] from Last 3 Months or Most Recently Relevant to Health Maintenance Care Teams Decorator Mannequin Relationship Specialty Start Date End Date Pcp, No PCP - General General Medicine 05/01/22
--- OUTSIDE RECORDS SUMMARY | 2024-08-21 10:23 | XMS_ITS | Encounter Summary ---
Author Organization [facility] Address [address] [place] [address] Care Team Providers Care Computer Project Manager Name Role Phone Provider, Unknown Primary Care Provider [phone] Kerri Sanchez DO Primary Care Provider [phone] Pcp, No Primary Care Provider Unavailabl e Encounter Details Date Type Department Care Team ([facility] st Contact Info) Description 05/07/2016 Scanned Document [address] [phone] Provider, Generic Social History Tobacco Use Types [...] on filedocumented in this encounter Care Teams Computer Project Manager Relationship Specialty Start Date End Date Provider, Unknown 1 DO NOT USE THIS RECORD PCP - General 04/06/16 06/09/16 Kerri Sanchez DO 1 DO NOT USE THIS RECORD PCP - General Family Medicine 06/10/16 04/30/22 Pcp, No PCP - General General Medicine 05/01/22 documented as of this encounter
[2024-08-21] MEDS: gadobutroL 10 ML VIAL IVPUSH (11:48)
== END 2024-08-21 09:20 | disposition home or self-care (01) ==
LOC: HO.MRI 09:19
PROVIDERS: Visit Provider Internal Medicine Gastroenterology
DX: K52.9 Noninfective gastroenteritis and colitis, unspecified (principal); E46 Unspecified protein-calorie malnutrition
CPT/HCPCS: 72197; 74183; A9585

== ENCOUNTER → 2024-08-21 09:58 | Outpatient (BNV) | payer OTHER, SELFPAY | PROVIDERS: Visit Provider Radiology Diagnostic Radiology | DX: K52.9 Noninfective gastroenteritis and colitis, unspecified (principal) | CPT/HCPCS: 74183 ==

== ENCOUNTER 2025-01-29 12:33 | Outpatient (REF) | payer OTHER, SELFPAY ==
[2025-01-29 14:20] LABS: Appearance Urine Clear; Glucose Urine UA Negative (Negative); PH 5.5 (5.0-9.0); Specific Gravity - Urine 1.015 (1.005-1.025)
[2025-01-29 14:51] LABS: Microalbum/Creatinine Ratio Ur 7.1 ug/mg cr (<30)
--- OUTSIDE RECORDS SUMMARY | 2025-01-29 17:13 | XMS_ITS | Encounter Summary ---
Author Organization Formerly [facility] Address [address] [place] [address] Care Team Providers Care Logging Superintendent Name Role Phone Provider, Unknown Primary Care Provider [phone] Kerri Sanchez DO Primary Care Provider [phone] Pcp, No Primary Care Provider Unavailabl e Encounter Details Date Type Department Care Team (Late st Contact Info) Description 05/07/2016 Scanned Document [address] [phone] Provider, Generic Social History Tobacco Use Types Packs/Day Years Used Date Smoking Tobacco: Never Alcohol Use Standard Drinks/Week Comments No 0 (1 standard drink = 0.6 oz pur e alcohol) Sex and Gender Information Value Date Recorded Sex Assigned at Not on file Legal Sex Male 9:26 AM EDT Gender Identity Not on file Sexual Orientation Not on file documented as of this encounter Plan of Treatment Not on file documented as of this encounter Visit Diagnoses Not on filedocumented in this encounter Care Teams Logging Superintendent Relationship Specialty Start Date End Date Provider, Unknown 1 DO NOT USE THIS RECORD PCP - General 04/06/16 06/09/16 Kerri Sanchez, 1 DO NOT USE THIS RECORD PCP - General Family Medicine 06/10/16 04/30/22 Pcp, No PCP - General General Medicine 05/01/22 documented as of this encounter
--- OUTSIDE RECORDS SUMMARY | 2025-01-29 17:13 | XMS_ITS | Encounter Summary ---
Author Organization [facility] Address [address] [place] [address] Care Team Providers Care Fluid Jet Cutter Operator Name Role Phone Kerri Sanchez DO Primary Care Provider Pcp, No Primary Care Provider Unavailabl e Encounter Details Date Type Department Care Team (Late st Contact Info) Description 06/10/2016 Scanned Document [address] [phone] Provider, Generic Social History Tobacco Use Types [...] on filedocumented in this encounter Care Teams Fluid Jet Cutter Operator Relationship Specialty Start Date End Date Kerri Sanchez DO PCP - General Family Medicine 06/10/16 04/30/22 Pcp, No PCP - General General Medicine 05/01/22 documented as of this encounter
--- OUTSIDE RECORDS SUMMARY | 2025-01-29 17:13 | XMS_ITS | Clinical Summary ---
Author Organization [facility] Address [address] [place] [address] Care Team Providers Care Steersman Name Role Phone Pcp, No Primary Care Provider Unavailabl e Allergies No known active allergies Medications azithromycin (ZITHROMAX) 500 MG tabletIndications: Penile discharge,Unprotec reji sex Take 2 tablets x 1 now. 2 tablet 0 6 Active rizatriptan (MAXALT) 5 MG tabletIndications: Episodic cluster headache, not intractable Take 1 tablet (5 mg total) by mouth once as needed for migraine. May repeat in 2 hours if unresolved. Do not exceed 30 mg in 24 hours. 9 tablet 1 6 Active methylPREDNISolone (MEDROL DOSEPAK) 4 MG tabletIndications: Episodic cluster headache, not intractable follow package directions 21 tablet 3 6 Active mefloquine (LARIAM) 250 MG tabletIndications: Need for malaria prophylaxis With food and with at least 8 oz of water. Take 1 tab po q week, starting 2 weeks before exposure, and continue for 4 weeks after exposure 11 tablet 0 6 Active levothyroxine (SYNTHROID, LEVOTHROID) 75 MCG tabletIndications: Acquired hypothyroidism Take 1 tablet (75 mcg total) by mouth every morning. 90 tablet 3 6 Active Active Problems Problem Noted Date Diagnosed [...] 77 06/12/2016 9:16 AM EST Temperature 36.2 C (97.2 F) 06/12/2016 7:46 AM EST Respiratory Rate 16 06/12/2016 9:16 AM EST [...] of 3 - 19+ 3-dose series) 2000 HPV Vaccines (1 - 3-dose SCDM series) 2008 Influenza Vaccine 12/15/2024 03/14/2020, , 05/29/2011, Additional history exists COVID-19 Vaccine ( season) 2025 HIV Screening Completed 12/11/2015 Hepatitis C Virus Screening Completed 12/11/2015 Pneumococcal Vaccine: Pediatric (0-5 Years) and At-Risk [...] Ag/Ab, 4th Gen NON-REACT ERMA NON-REACT ERMA [facility] Comment: HIV-1 antigen and HIV-1/HIV-2 antibodies were not detected. There is no laboratory evidence of HIV infection. PLEASE NOTE: This information has been disclosed to you from records whose confidentiality may be protected by state law. If your state requires such protection, then the state law prohibits you from making any further disclosure of the information without the specific written consent of the person to whom it pertains, or as otherwise permitted by law. A general authorization for the release of medical or other information is NOT sufficient for this purpose. For additional information please refer to http://education.EyeSee360/faq/HZD783 (This link is being provided for informational/ educational purposes only.) The performance of this assay has not been clinically validated in patients less than 2 years old. Blood specimen (specimen) Blood specimen / Unknown 12/11/2015 12:45 PM EDT 12/11/2015 12:49 PM EDT Narrative [facility] - 12/13/2015 11:31 AM EDT FASTING:NO Resulting Agency Comment Performing Organization Information: Site ID: [id number] Name: [facility] Address: [address] [place] [address], [place] [address] Director: Ginny Goodrich MD [facility] LAB BLOOD ORDERABLES Final Re sult [employer] [address], [place] [address] * Hepatitis C Virus (HCV) Antibody (12/11/2015 12:45 PM EDT) Hepatitis C Antibody NON-REACTI VE NON-REACT ERMA [facility]1 Hepatitis C Antibody (s/co) 0.03 <1.00 [facility] Blood specimen (specimen) Blood specimen / Unknown 12/11/2015 12:45 PM EDT 12/11/2015 12:49 PM EDT Narrative [facility] - 12/13/2015 11:31 AM EDT FASTING:NO Resulting Agency Comment Performing Organization Information: Site ID: [id number] Name: [facility] Address: [address], [place] [address] Director: Ginny Goodrich MD Ernestoriana Maharaj CAREER DEVELOPMENT ENGINEER LAB BLOOD ORDERABLES Final Re sult [facility]1 [address], [place] [address] from Last 3 Months or Most Recently Relevant to Health Maintenance Insurance [employer] PPO Care Teams Steersman Relationship Specialty Start Date End Date Pcp, No PCP - General General Medicine 05/01/22
== END 2025-01-29 12:34 | disposition home or self-care (01) ==
LOC: HO.WFDLDS 12:33
PROVIDERS: Visit Provider Family Medicine
DX: Z00.00 Encounter for general adult medical examination without abnormal findings (principal); R53.83 Other fatigue; I10 Essential (primary) hypertension
CPT/HCPCS: 81003; 82043; 82570

== ENCOUNTER 2025-04-03 11:10 | Outpatient (REF) | payer OTHER, SELFPAY ==
[2025-04-03 14:35] LABS: Appearance Urine Clear; Glucose Urine UA Negative (Negative); PH 5.0 (5.0-9.0); Specific Gravity - Urine 1.020 (1.005-1.025)
[2025-04-03 14:36] LABS: MANUAL DIFF FLAG NO
[2025-04-03 14:51] LABS: Hematocrit 50.2 % (42.0-52.0); Hemoglobin 16.2 g/dl (14.0-18.0); Imm Gran Abs Auto 0.01 X10*3/uL (0.00-0.03); Imm Gran Pct Auto 0.2 % (0.0-0.4); Lymphocytes Absolute Auto 2.7 X10*3/uL (1.2-4.9); Mean Corpuscular HGB Conc 32.3 g/dl (31.0-36.0); Mean Corpuscular Hemoglobin 26.9 pg (27.0-33.0); Mean Corpuscular Volume 83.3 fL (80.0-98.0); NRBC Abs Auto 0.000 X10*3/uL (0.0-0.012); NRBC Pct Auto 0.0 /100WBC (0.0-0.2); Platelet Count 227 X10*3/uL (160-400); Red Blood Count 6.03 X10*6/uL (4.60-5.80); White Blood Count 4.9 X10*3/uL (4.8-10.8)
[2025-04-03 15:37] LABS: Alanine Aminotransferase 27 U/L (0-40); Albumin Level 5.0 g/dL (3.5-5.0); Alkaline Phosphatase 54 U/L (39-117); Anion Gap 11 (12-20); Aspartate Amino Transferase 45 U/L (5-37); Blood Urea Nitrogen 13 mg/dL (9-16); Calcium 9.7 mg/dL (8.4-10.2); Carbon Dioxide 28 mmol/L (22-29); Chloride 103 mmol/L (96-108); Cholesterol 228 mg/dL (<200); Estimated Glomerular Filt Rate > 60; HDL Cholesterol 49 mg/dL (>40); Potassium 3.7 mmol/L (3.3-5.1); Sodium 138 mmol/L (135-145); Total Protein 7.8 g/dL (6.5-8.0); Triglycerides 92 mg/dL (<150)
== END 2025-04-03 11:11 | disposition home or self-care (01) ==
LOC: HO.WFDLDS 11:10
PROVIDERS: Visit Provider Family Medicine
DX: Z00.00 Encounter for general adult medical examination without abnormal findings (principal); Z12.5 Encounter for screening for malignant neoplasm of prostate; R39.15 Urgency of urination; E55.9 Vitamin D deficiency, unspecified; Z13.29 Encounter for screening for other suspected endocrine disorder; Z13.6 Encounter for screening for cardiovascular disorders
CPT/HCPCS: 36415; 80053; 80061; 81003; 82306; 84153; 84443; 85025

== ENCOUNTER 2025-05-02 15:28 | Outpatient (AMB) | payer OTHER, SELFPAY ==
--- NOTE | 2025-05-02 15:36 | MHC.OFFVIS ---
Intake Visit Reasons: Urinary urgency/UA/PVR(set) Intake Note: Reason for Visit: New Patient Urinary Urgency Urology Meds: None Blood Thinners: None Antibiotic Allergy: None Labs: PSA- 0.64 (04/03/2025) Imaging: Pelvis MRI (08/21/2024) Last PVR: None Family History: Prostate Cancer? Uncle on father's side Bladder Cancer? No Kidney Cancer? No Previous Urology? No Accompanied by: Self / Same As Patient Allergies No Known Allergies Allergy (Verified 05/02/25 15:40) HPI Comments Details: Lis is a pleasant male. He is a patient of Dr. Garrett. He is seen for the following urologic conditions - urinary urge - urinary frequency On discussion appears his drinking significant amount of fluid We will drink up tonight 6 oz day Too much of this appears to be in the 4 hours before going to bed This appears to be driving urinary urge and frequency Discussed baseline parameters for voiding Effective urinary stream pressure Low urinary voiding times PFSH Medical History Gastritis and duodenitis Surgical History History of laparoscopic appendectomy (~10/30/23) Hx of colonoscopy History of esophagogastroduodenoscopy (EGD) Family History (Updated 05/02/25 @ 15:41 by AARON Hernandez) Paternal Uncle Prostate cancer Social History Household Members: None Housing: Apartment Are you a primary personal care service provider to a significant other at home: No Do you presently have visiting nurse or other home services: No Patient Tobacco Use Status: Never used Tobacco e-Cigarette/Vaping Use: Never Used Current occupational status: employed 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[employer] [place] Review of Systems Const Denies chills and Denies fever(s) Card Reports no additional complaints and Denies syncope Resp Denies cough GI Denies abdominal pain and Denies heartburn Reports as per HPI and Denies change in libido Neuro Denies syncope Psych Denies change in libido Endo Denies change in libido Physical Exam Const General: cooperative, healthy appearing, comfortable and no acute distress Orientation/consciousness: patient oriented x3 HEENT Face and sinus: Yes normal facial exam Mouth: moist mucous membranes Neck Neck: Yes normal visual inspection, Yes full ROM and Yes trachea midline Chest Chest palpation & inspection: normal inspection of the chest Resp Effort & Inspection: normal respiratory effort, able to speak in complete sentences and no respiratory distress GI Inspection: Yes normal to inspection Back/Spine/Pelvis Cervical Spine: normal cervical lordosis Thoracic/Lumbar Spine: thoracic and lumbar spine normal to inspection Skin General skin exam: no rashes or lesions noted Neuro General: patient oriented x3, gait normal, tone normal and moves all extremities Extrem General: Yes normal to inspection and Yes capillary refill normal Assessment & Plan Assessment & Plan (1) Urinary urgency: Code(s): R39.15 - Urgency of urination Category: Medical Plan Stress need to moderate fluid intake Target 64-80 on cysto today Orders: Orders AMB Post Void Residual by ultrasound 05/02/25 R39.15 - Urgency of urination Patient Instructions: This note is constructed using voice recognition software. While every effort has been made to ensure accuracy clinical pharmacologist errors may have been included. Imaging studies, laboratory and physical exam results were discussed and reviewed in detail. No major barriers to patient understanding were identified. An opportunity to ask questions regarding the treatment plan was provided. All questions were answered. The patient expressed understanding and agreement with the above treatment plan. The patient is aware they should contact our office by phone for worsening of their current condition or the appearance of new urologic symptoms. Compliance is encouraged with any medications and followup testing that is ordered. It is a privilege to participate in the urologic care of your patient. If you have any questions or concerns regarding treatment for the above conditions, or other urologic issues, please do not hesitate to contact me. The office telephone contact is [phone]. Sincerely, Dr Waqas Griffin MD, [facility] - Urology Compassionate Specialist Care for the Genitourinary System Coding Level of Care Code New Pt Level 3 (10056) Diagnoses Urinary urgency R39.15
--- OUTSIDE RECORDS SUMMARY | 2025-05-02 20:24 | XMS_ITS | Clinical Summary ---
Author Organization [facility] Address [address] [place] [address] Care Team Providers Care Cloth Desizing Range Tender Name Role Phone Pcp, No Primary Care [...] - 19+ 3-dose series) 2000 Influenza Vaccine 12/15/2024 03/14/2020, , 05/29/2011, Additional history exists COVID-19 Vaccine ( season) 2025 HIV Screening Completed 12/11/2015 Hepatitis C Virus Screening Completed 12/11/2015 HPV Vaccines (No Doses Required) Completed Pneumococcal Vaccine: Pediatric (0-5 Years) and At-Risk [...] Ag/Ab, 4th Gen NON-REACT ERMA NON-REACT ERMA [facility] NL[facility] Comment: HIV-1 antigen and HIV-1/HIV-2 [...] purpose. For additional information please refer to http://education.Endra/faq/DOG613 (This link is being provided for informational/ educational purposes only.) The performance of this assay has not been clinically validated in patients less than 2 years old. Blood specimen (specimen) Blood specimen / Unknown 12/11/2015 12:45 PM EDT 12/11/2015 12:49 PM EDT Narrative [facility] - 12/13/2015 11:31 AM EDT FASTING:NO Resulting Agency Comment Performing Organization Information: Site ID: [id number] Name: [facility] Address: [address] [place] [address], [place] [address] Director: Ginny Goodrich MD [facility] LAB BLOOD ORDERABLES Final Re sult [facility] [address] [place] [address], [place], [place] [id number] * Hepatitis C Virus (HCV) Antibody (12/11/2015 12:45 PM EDT) Hepatitis C Antibody NON-REACTI VE NON-REACT ERMA [facility] Hepatitis C Antibody (s/co) 0.03 <1.00 [facility] Blood specimen (specimen) Blood specimen / Unknown 12/11/2015 12:45 PM EDT 12/11/2015 12:49 PM EDT Narrative [facility] - 12/13/2015 11:31 AM EDT FASTING:NO Resulting Agency Comment Performing Organization Information: Site ID: [id number] Name: [facility] Address: [address] [place] [address] [place], [place] [address] Director: Ginny Goodrich MD Ernestoriana Maharaj L[facility] LAB BLOOD ORDERABLES Final Re sult [facility] [address], [address] [place], [place] [id number] from Last 3 Months or Most Recently Relevant to Health Maintenance Insurance [employer] PPO Care Teams Cloth Desizing Range Tender Relationship Specialty Start Date End Date Pcp, No PCP - General General Medicine 05/01/22
--- OUTSIDE RECORDS SUMMARY | 2025-05-02 20:24 | XMS_ITS | Encounter Summary ---
Author Organization [facility] Address [address] [place] [address] Care Team Providers Care Rn Lactation Consultant Name Role Phone Kerri Sanchez DO Primary Care Provider [phone] Pcp, No Primary Care Provider Unavailabl e Encounter Details Date Type Department Care Team ([facility] st Contact Info) Description 06/10/2016 Scanned Document [address] [phone] Provider, Generic Social History Tobacco Use Types [...] on filedocumented in this encounter Care Teams Rn Lactation Consultant Relationship Specialty Start Date End Date Kerri Sanchez DO PCP - General Family Medicine 06/10/16 04/30/22 Pcp, No PCP - General General Medicine 05/01/22 documented as of this encounter
--- OUTSIDE RECORDS SUMMARY | 2025-05-02 20:24 | XMS_ITS | Encounter Summary ---
Author Organization [facility] Address [address] [place] [address] Care Team Providers Care Refuse Collector Name Role Phone Provider, Unknown Primary Care Provider [phone] Kerri Sanchez DO Primary Care Provider [phone] Pcp, No Primary Care Provider Unavailabl e Encounter Details Date Type Department Care Team (Late st Contact Info) Description 05/07/2016 Scanned Document [address] [phone] Provider, Generic Social History Tobacco Use Types [...] on filedocumented in this encounter Care Teams Refuse Collector Relationship Specialty Start Date End Date Provider, Unknown 1 DO NOT USE THIS RECORD PCP - General 04/06/16 06/09/16 Kerri Sanchez, 1 DO NOT USE THIS RECORD PCP - General Family Medicine 06/10/16 04/30/22 Pcp, No PCP - General General Medicine 05/01/22 documented as of this encounter
== END 2025-05-02 16:46 | disposition home or self-care (01) ==
LOC: HO.HUSH 15:28
PROVIDERS: PCP Family Medicine; Visit Provider Urology
DX: R39.15 Urgency of urination (principal)
CPT/HCPCS: 99203